=== PATIENT | female | born 1970 | race Caucasian/White ===

== ENCOUNTER 2018-06-23 14:44 | Inpatient (IN) | payer OTHER ==
[2018-06-23 16:55] VITALS: BMI 25.0
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
[2018-06-23] MEDS ORDERED: MELATONIN 5 MG TABLETS PO PRN (18:47)
[2018-06-23] MEDS ORDERED: ACETAMINOPHEN 325 MG TABLET (FP) PO PRN (18:47)
[2018-06-23] MEDS ORDERED: guaiFENesin 200 MG/10 ML 10 ML UNIT-DOSE CUPS PO PRN (18:47)
[2018-06-23] MEDS ORDERED: BISMUTH SUBSALICYLATE 524 MG/30 ML UD PO PRN (18:47)
[2018-06-23] MEDS ORDERED: chlordiazePOXIDE HCL 25 MG CAPSULE PO PRN (18:47)
[2018-06-23] MEDS ORDERED: IBUPROFEN 400 MG TABLET (FP) PO PRN (18:47)
[2018-06-23] MEDS ORDERED: PROCHLORPERAZINE MALEATE 5 MG TABLET PO PRN (18:47)
[2018-06-23] MEDS ORDERED: MAG HYDROX/AL HYDROX/SIMETH 30 ML UNIT-DOSE CUP PO PRN (18:47)
[2018-06-23] MEDS ORDERED: MENTHOL/PHENOL 1 EACH UD MM PRN (18:47)
[2018-06-23] MEDS ORDERED: MAGNESIUM CITRATE 300 ML BOTTLE PO PRN (18:47)
[2018-06-23] MEDS ORDERED: MAGNESIUM HYDROX 2400MG/30ML ORAL SUSPENSION 30 ML CUP PO PRN (18:47)
[2018-06-23] MEDS ORDERED: BUPRENORPHINE/NALOXONE 8 MG/2 MG FILM PACKET SL ONE (19:30)
[2018-06-23] MEDS ORDERED: chlordiazePOXIDE HCL 25 MG CAPSULE PO ONE (19:30)
[2018-06-23] MEDS: diphenhydrAMINE HCL 25 MG CAPSULE (FP) PO SCH (21:18)
[2018-06-23] MEDS: chlordiazePOXIDE HCL 25 MG CAPSULE PO SCH (22:55)
[2018-06-23] MEDS: THIAMINE HCL 100 MG TABLET (FP) PO SCH (22:56)
[2018-06-23] MEDS: METHOCARBAMOL 500 MG TABLET PO PRN (23:07)
[2018-06-23] MEDS: TOPIRAMATE 25 MG TABLET (FP) PO SCH (23:42)
[2018-06-23] MEDS: NITROFURANTOIN MACROCRYSTAL 50 MG CAPSULE (FP) PO SCH (23:44)
[2018-06-24] MEDS ORDERED: cloNIDine HCL 0.1 MG TABLET PO ONE (01:46)
[2018-06-24] MEDS: IBUPROFEN 600 MG TABLET (FP) PO PRN ×2 (01:55→22:45)
[2018-06-24] MEDS: diphenhydrAMINE HCL 25 MG CAPSULE (FP) PO SCH (01:57)
[2018-06-24] MEDS: chlordiazePOXIDE HCL 25 MG CAPSULE PO SCH ×4 (05:50→22:25)
--- NOTE | 2018-06-24 09:20 | PN ---
[facility] CIWA - CIWA Score Nausea/Vomitin Muscle Tremors: 3 Anxiety: 3 Agitation: 4-Moderately Restless Paroxysmal Sweats: 3 Orientation: 0-Oriented Tacttile Disturbances: 0-None Auditory Disturbances: 0-None Visual Disturbances: 0-None Headache: 0-None Present CIWA-Ar Total Score: 16 [facility] Progress Note (SOAP) Subjective: Generalized pain Sweats nausea Objective: 06/24/18 09:17 A & O x 3 Anxiety/Restless Requesting to have her suboxone dose daily instead of BID Requesting psych consult Vital Signs Temperature 98.8 F 06/24/18 06:13 Pulse Rate 60 06/24/18 06:13 Respiratory Rate 18 06/24/18 06:13 Blood Pressure 122/79 06/24/18 06:13 O2 Sat by Pulse Oximetry (%) Lab results are pending Assessment: 06/24/18 09:53 withdrawal sx Plan: continue detox Psych consult already ordered Called pt's [facility]oxone center ([facility]) at [phone], unable to verify dose as voicemail was received. Voice message left with [employer] ARTIST call back #. Will keep pt on the dose ordered by MARY Chapman until dose is verified. Pt made aware
[2018-06-24] MEDS: PRENATAL VITAMINS W/ FOLIC ACID TABLET (FP) PO SCH (10:48)
[2018-06-24] MEDS: NITROFURANTOIN MACROCRYSTAL 50 MG CAPSULE (FP) PO SCH ×2 (10:48→22:23)
[2018-06-24] MEDS: BUPRENORPHINE/NALOXONE 8 MG/2 MG FILM PACKET SL SCH (10:48)
[2018-06-24] MEDS: TOPIRAMATE 25 MG TABLET (FP) PO SCH ×2 (10:48→22:23)
[2018-06-24 10:54] LABS: HEMATOCRIT 38.6 % (32.4-45.2); HEMOGLOBIN 12.3 GM/dL (10.7-15.3); MCH 29.4 pg (25.7-33.7); MCHC 31.8 g/dl (32.0-36.0); MEAN CELL VOLUME 92.4 fl (80-96); MEAN PLT VOLUME 7.4 fl (7.5-11.1); PLATELET COUNT 163 K/MM3 (134-434); RBC 4.17 M/mm3 (3.60-5.2); RDW 15.6 % (11.6-15.6); WHITE BLOOD COUNT 6.2 K/mm3 (4.0-10.0)
[2018-06-24 11:01] LABS: ALBUMIN 3.5 g/dl (3.4-5.0); ALK PHOS 106 U/L (45-117); ANION GAP 7 MMOL/L (8-16); BILIRUBIN,TOTAL 0.8 mg/dL (0.2-1); BLOOD UREA NITROGEN 16 mg/dL (7-18); CALCIUM 8.8 mg/dL (8.5-10.1); CHLORIDE 101 mmol/L (98-107); CO2 26 mmol/L (21-32); CREATININE 0.6 mg/dL (0.55-1.3); GLUCOSE,RANDOM 88 mg/dL (74-106); POTASSIUM 3.5 mmol/L (3.5-5.1); SGOT/AST 36 U/L (15-37); SGPT/ALT 24 U/L (13-61); SODIUM 134 mmol/L (136-145); TOT PROT 6.9 g/dl (6.4-8.2)
[2018-06-24] MEDS: METHOCARBAMOL 500 MG TABLET PO PRN ×2 (11:26→18:00)
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
[2018-06-24] MEDS: THIAMINE HCL 100 MG TABLET (FP) PO SCH (22:22)
[2018-06-24] MEDS: BUPRENORPHINE/NALOXONE 2 MG/0.5 MG FILM PACKET SL SCH (22:25)
[2018-06-25] MEDS: ACETAMINOPHEN 325 MG TABLET (FP) PO PRN ×2 (01:08→05:49)
[2018-06-25] MEDS: METHOCARBAMOL 500 MG TABLET PO PRN ×2 (01:08→10:51)
[2018-06-25] MEDS: chlordiazePOXIDE HCL 25 MG CAPSULE PO SCH ×2 (05:49→10:47)
[2018-06-25 09:33] VITALS: BP 104/70; PULSE 81; TEMP 96
[2018-06-25] MEDS ORDERED: VENLAFAXINE HCL 75 MG E.R. CAPSULES (FP) PO SCH (10:00)
[2018-06-25] MEDS: BUPRENORPHINE/NALOXONE 8 MG/2 MG FILM PACKET SL SCH (10:47)
[2018-06-25] MEDS: TOPIRAMATE 25 MG TABLET (FP) PO SCH (10:47)
[2018-06-25] MEDS: PRENATAL VITAMINS W/ FOLIC ACID TABLET (FP) PO SCH (10:47)
[2018-06-25] MEDS: BUPRENORPHINE/NALOXONE 2 MG/0.5 MG FILM PACKET SL SCH (10:47)
[2018-06-25] MEDS: NITROFURANTOIN MACROCRYSTAL 50 MG CAPSULE (FP) PO SCH (10:48)
--- NOTE | 2018-06-25 13:43 | DS ---
[facility] Detox Discharge Summary Admission Date: 06/23/18 Discharge Date: 06/25/18 - History Present History: Alcohol Dependence Additional Comments: 47 years old naga admitted on 06/23/18 for alcohol withdrawal stabilization feeling better wishes to leave detox unit today and begin alcohol rehab tomorrow patient wants to return to her suboxone maintenance program for medical and mental issues - Physical Exam Results Vital Signs: Vital Signs Temperature 96.0 F L 06/25/18 09:33 Pulse Rate 81 06/25/18 09:33 Respiratory Rate 16 06/25/18 09:33 Blood Pressure 104/70 06/25/18 09:33 O2 Sat by Pulse Oximetry (%) Pertinent Admission Physical Exam Findings: alcoholl withdrawal sx Laboratory Last Values WBC 6.2 K/mm3 (4.0-10.0) 06/24/18 07:45 RBC 4.17 M/mm3 (3.60-5.2) 06/24/18 07:45 Hgb 12.3 GM/dL (10.7-15.3) 06/24/18 07:45 Hct 38.6 % (32.4-45.2) 06/24/18 07:45 MCV 92.4 fl (80-96) 06/24/18 07:45 MCH 29.4 pg (25.7-33.7) 06/24/18 07:45 MCHC 31.8 g/dl (32.0-36.0) L 06/24/18 07:45 RDW 15.6 % (11.6-15.6) D 06/24/18 07:45 Plt Count 163 K/MM3 (134-434) D 06/24/18 07:45 MPV 7.4 fl (7.5-11.1) L 06/24/18 07:45 Sodium 134 mmol/L (136-145) L 06/24/18 07:45 Potassium 3.5 mmol/L (3.5-5.1) 06/24/18 07:45 Chloride 101 mmol/L (98-107) 06/24/18 07:45 Carbon Dioxide 26 mmol/L (21-32) 06/24/18 07:45 Anion Gap 7 MMOL/L (8-16) L 06/24/18 07:45 BUN 16 mg/dL (7-18) 06/24/18 07:45 Creatinine 0.6 mg/dL (0.55-1.3) 06/24/18 07:45 Creat Clearance w eGFR 107.62 (>60) 06/24/18 07:45 Random Glucose 88 mg/dL (74-106) 06/24/18 07:45 Calcium 8.8 mg/dL (8.5-10.1) 06/24/18 07:45 Total Bilirubin 0.8 mg/dL (0.2-1) 06/24/18 07:45 AST 36 U/L (15-37) 06/24/18 07:45 ALT 24 U/L (13-61) 06/24/18 07:45 Alkaline Phosphatase 106 U/L (45-117) 06/24/18 07:45 Total Protein 6.9 g/dl (6.4-8.2) 06/24/18 07:45 Albumin 3.5 g/dl (3.4-5.0) 06/24/18 07:45 RPR Titer Nonreactive (NONREACTIVE) 06/24/18 07:45 lab noted - Treatment Hospital Course: Detox Protocol Followed, Detoxed Safely, Responded well, Discharged Condition Good, Rehab Referral Accepted Patient has Accepted a Rehab Referral to: suboxone maintenance program - Medication Discharge Medications: Ambulatory Orders Hydroxyzine HCl 50 mg PO TID 06/23/18 Topiramate [Topamax -] 100 mg PO BID 06/23/18 Venlafaxine HCl ER [Effexor Xr -] 225 mg PO DAILY 06/23/18 - Diagnosis (1) Alcohol dependence with uncomplicated withdrawal Current Visit: Yes Status: Acute (2) Encounter for monitoring Suboxone maintenance therapy Current Visit: Yes Status: Chronic - AMA Did Patient Leave Against Medical Advice: No
[2018-06-25] MEDS ORDERED: chlordiazePOXIDE HCL 10 MG CAPSULE PO SCH (23:00)
[2018-06-25] MEDS ORDERED: chlordiazePOXIDE HCL 10 MG CAPSULE PO PRN (23:00)
--- NOTE | 2018-06-26 11:22 | EKG ---
Test Reason : Blood Pressure : / mmHG Vent. Rate : 079 BPM Atrial Rate : 085 BPM P-R Int : 134 ms QRS Dur : 102 ms QT Int : 394 ms P-R-T Axes : 048 039 040 degrees QTc Int : 451 ms SINUS RHYTHM WITH MARKED SINUS ARRHYTHMIA MINIMAL VOLTAGE CRITERIA FOR LVH, MAY BE NORMAL VARIANT BORDERLINE ECG NO PREVIOUS ECGS AVAILABLE Confirmed by FLORENCE FULTON MD ([id number]) on 06/26/2018 11:21:43 AM Referred By: Confirmed By:FLORENCE FULTON MD
[2018-06-26] MEDS ORDERED: chlordiazePOXIDE HCL 10 MG CAPSULE PO SCH (23:00)
== END 2018-06-25 15:35 | disposition home or self-care (01) | DRG 773 ==
LOC: YASAS 14:44 → Y3N 19:10
PROVIDERS: ADMIT Surgery; ATTEND Surgery
PROC: HZ2ZZZZ Detoxification Services for Substance Abuse Treatment (ICD-10-PCS; principal; 2018-06-23)
DX: F10.230 Alcohol dependence with withdrawal, uncomplicated (principal); F11.20 Opioid dependence, uncomplicated; F14.20 Cocaine dependence, uncomplicated; F43.10 Post-traumatic stress disorder, unspecified; F31.9 Bipolar disorder, unspecified; F90.9 Attention-deficit hyperactivity disorder, unspecified type; D50.9 Iron deficiency anemia, unspecified; G47.00 Insomnia, unspecified; N39.0 Urinary tract infection, site not specified; M54.5 Low back pain; G89.29 Other chronic pain; Z86.69 Personal history of other diseases of the nervous system and sense organs; Z98.84 Bariatric surgery status; Z98.1 Arthrodesis status
CPT/HCPCS: 36415; 80053; 80201; 85027; 86593; 93005; 93010; J0735

== ENCOUNTER 2018-07-22 08:23 | Inpatient (IN) | payer OTHER ==
[2018-07-22 08:53] VITALS: BMI 26.6
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
[2018-07-22] MEDS ORDERED: BISMUTH SUBSALICYLATE 524 MG/30 ML UD PO PRN (09:49)
[2018-07-22] MEDS ORDERED: MAGNESIUM CITRATE 300 ML BOTTLE PO PRN (09:49)
[2018-07-22] MEDS ORDERED: MAGNESIUM HYDROX 2400MG/30ML ORAL SUSPENSION 30 ML CUP PO PRN (09:49)
[2018-07-22] MEDS ORDERED: MAG HYDROX/AL HYDROX/SIMETH 30 ML UNIT-DOSE CUP PO PRN (09:49)
[2018-07-22] MEDS ORDERED: NICOTINE POLACRILEX 2 MG GUM BUC PRN (09:49)
[2018-07-22] MEDS ORDERED: MENTHOL/PHENOL 1 EACH UD MM PRN (09:49)
[2018-07-22] MEDS ORDERED: chlordiazePOXIDE HCL 25 MG CAPSULE PO ONE (09:49)
[2018-07-22] MEDS: BUPRENORPHINE/NALOXONE 8 MG/2 MG FILM PACKET SL SCH (10:40)
[2018-07-22] MEDS: chlordiazePOXIDE HCL 25 MG CAPSULE PO SCH ×3 (10:40→22:25)
[2018-07-22] MEDS: TOPIRAMATE 100 MG TABLET PO SCH ×2 (11:13→22:25)
[2018-07-22] MEDS: EMTRICITABINE 200MG/TENOFOVIR 300MG PO SCH (11:13)
[2018-07-22] MEDS: PRENATAL VITAMINS W/ FOLIC ACID TABLET (FP) PO SCH (11:13)
[2018-07-22] MEDS: RALTEGRAVIR POTASSIUM 400 MG TAB PO SCH ×2 (11:13→22:25)
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
[2018-07-22] MEDS: IBUPROFEN 400 MG TABLET (FP) PO PRN ×2 (15:17→23:43)
--- NOTE | 2018-07-22 18:29 | PN ---
S Progress Note Note: patient complained of itching,benadryl 25 mgs po q 6 hrs prn ordered Vital Signs Temperature 98.1 F 07/22/18 14:22 Pulse Rate 80 07/22/18 14:22 Respiratory Rate 16 07/22/18 14:22 Blood Pressure 133/70 07/22/18 14:22 O2 Sat by Pulse Oximetry (%) no difficulty in breathing close monitoring,continue detox
[2018-07-22] MEDS: diphenhydrAMINE HCL 25 MG CAPSULE (FP) PO PRN (18:32)
[2018-07-22] MEDS: ACETAMINOPHEN 325 MG TABLET (FP) PO PRN (18:33)
[2018-07-22] MEDS: THIAMINE HCL 100 MG TABLET (FP) PO SCH (22:25)
[2018-07-22] MEDS: MELATONIN 5 MG TABLETS PO PRN (22:26)
[2018-07-23] MEDS: ACETAMINOPHEN 325 MG TABLET (FP) PO PRN ×3 (00:40→17:34)
[2018-07-23] MEDS: diphenhydrAMINE HCL 25 MG CAPSULE (FP) PO PRN ×2 (00:42→15:07)
[2018-07-23] MEDS: chlordiazePOXIDE HCL 25 MG CAPSULE PO PRN ×2 (02:39→14:19)
[2018-07-23] MEDS: chlordiazePOXIDE HCL 25 MG CAPSULE PO SCH ×4 (05:30→22:13)
[2018-07-23] MEDS: IBUPROFEN 400 MG TABLET (FP) PO PRN (05:32)
[2018-07-23] MEDS: PRENATAL VITAMINS W/ FOLIC ACID TABLET (FP) PO SCH (10:13)
[2018-07-23] MEDS: BUPRENORPHINE/NALOXONE 8 MG/2 MG FILM PACKET SL SCH (10:14)
[2018-07-23] MEDS ORDERED: IBUPROFEN 400 MG TABLET (FP) PO PRN (10:23)
[2018-07-23 11:01] LABS: HEMOGLOBIN 11.4 GM/dL (10.7-15.3); MCH 30.1 pg (25.7-33.7); MCHC 32.7 g/dl (32.0-36.0); MEAN CELL VOLUME 92.3 fl (80-96); MEAN PLT VOLUME 7.2 fl (7.5-11.1); PLATELET COUNT 279 K/MM3 (134-434); RDW 16.8 % (11.6-15.6); WHITE BLOOD COUNT 5.2 K/mm3 (4.0-10.0)
[2018-07-23 11:13] LABS: ALBUMIN 3.5 g/dl (3.4-5.0); ALK PHOS 93 U/L (45-117); ANION GAP 8 MMOL/L (8-16); BILIRUBIN,TOTAL 0.6 mg/dL (0.2-1); BLOOD UREA NITROGEN 10 mg/dL (7-18); CALCIUM 8.6 mg/dL (8.5-10.1); CHLORIDE 104 mmol/L (98-107); CO2 25 mmol/L (21-32); CREATININE 0.6 mg/dL (0.55-1.3); GLUCOSE,RANDOM 67 mg/dL (74-106); POTASSIUM 3.1 mmol/L (3.5-5.1); SGOT/AST 24 U/L (15-37); SGPT/ALT 25 U/L (13-61); SODIUM 137 mmol/L (136-145)
[2018-07-23] MEDS: EMTRICITABINE 200MG/TENOFOVIR 300MG PO SCH (13:12)
[2018-07-23] MEDS: METHOCARBAMOL 500 MG TABLET PO PRN ×2 (13:12→22:15)
--- NOTE | 2018-07-23 13:12 | PN ---
[facility] CIWA - CIWA Score Nausea/Vomitin-No Nausea/No Vomiting Muscle Tremors: 1-None Visible, but [place] Anxiety: 4-Mod. Anxious/Guarded Agitation: 2 Paroxysmal Sweats: No Perspiration Orientation: 0-Oriented Tacttile Disturbances: 0-None Auditory Disturbances: 0-None Visual Disturbances: 0-None Headache: 3-Moderate CIWA-Ar Total Score: 10 S Progress Note (SOAP) Subjective: Patient c/o insomnia, anxiety, shakes, headache and sadness due to not having custody of her son. Patient seen by Psych but states her medication dosages are not correct. Requesting psych consult. Objective: 07/23/18 13:09 Laboratory Tests 07/23/18 07/23/18 07/23/18 07:00 07:00 07:00 WBC 5.2 RBC 3.80 Hgb 11.4 Hct 35.0 MCV 92.3 MCH 30.1 MCHC 32.7 RDW 16.8 H Plt Count 279 D MPV 7.2 L Sodium 137 Potassium 3.1 L Chloride 104 Carbon Dioxide 25 Anion Gap 8 BUN 10 Creatinine 0.6 Creat Clearance w eGFR 107.62 Random Glucose 67 L Calcium 8.6 Total Bilirubin 0.6 AST 24 ALT 25 Alkaline Phosphatase 93 Total Protein 7.0 Albumin 3.5 RPR Titer Nonreactive Vital Signs Temperature 98.1 F 07/23/18 09:39 Pulse Rate 71 07/23/18 09:39 Respiratory Rate 18 07/23/18 09:39 Blood Pressure 124/68 07/23/18 09:39 O2 Sat by Pulse Oximetry (%) pe: alert and oriented x 3 skin warm, +facial flushing ext full rom, mild tremors felt amb ad román anxious Assessment: 07/23/18 13:11 withdrawal sx sleep disturbance depressed affect Plan: continue detox encourage fluids trazodone 50mg hs ordered reconsult psych monitor clinically
[2018-07-23] MEDS: RALTEGRAVIR POTASSIUM 400 MG TAB PO SCH ×2 (13:13→22:13)
[2018-07-23] MEDS: TOPIRAMATE 100 MG TABLET PO SCH ×2 (13:14→22:13)
[2018-07-23] MEDS: POTASSIUM CHLORIDE TABS 20 MEQ TABLET.ER (FP) PO SCH ×2 (13:55→22:13)
[2018-07-23] MEDS ORDERED: traZODone HCL 50 MG TABLET (FP) PO SCH (22:00)
[2018-07-23] MEDS ORDERED: traZODone HCL 50 MG TABLET (FP) PO ONE (22:00)
[2018-07-23] MEDS: THIAMINE HCL 100 MG TABLET (FP) PO SCH (22:13)
[2018-07-23] MEDS: MELATONIN 5 MG TABLETS PO PRN (22:14)
[2018-07-24] MEDS: chlordiazePOXIDE HCL 25 MG CAPSULE PO SCH (05:42)
[2018-07-24] MEDS: METHOCARBAMOL 500 MG TABLET PO PRN ×3 (05:44→18:34)
[2018-07-24] MEDS ORDERED: ONDANSETRON *ODT* 4 MG TABLET SL PRN (09:41)
[2018-07-24] MEDS: POTASSIUM CHLORIDE TABS 20 MEQ TABLET.ER (FP) PO SCH (10:05)
[2018-07-24] MEDS: RALTEGRAVIR POTASSIUM 400 MG TAB PO SCH ×2 (10:05→22:37)
[2018-07-24] MEDS: PRENATAL VITAMINS W/ FOLIC ACID TABLET (FP) PO SCH ×2 (10:05→10:07)
[2018-07-24] MEDS: chlordiazePOXIDE HCL 10 MG CAPSULE PO SCH ×3 (10:07→22:37)
[2018-07-24] MEDS: EMTRICITABINE 200MG/TENOFOVIR 300MG PO SCH (10:07)
[2018-07-24] MEDS: BUPRENORPHINE/NALOXONE 8 MG/2 MG FILM PACKET SL SCH (10:07)
[2018-07-24] MEDS: TOPIRAMATE 100 MG TABLET PO SCH ×2 (10:07→22:38)
--- NOTE | 2018-07-24 10:49 | PN ---
S CIWA - CIWA Score Nausea/Vomitin-Mild Nausea/No Vomiting Muscle Tremors: 3 Anxiety: 3 Agitation: 4-Moderately Restless Paroxysmal Sweats: 3 Orientation: 0-Oriented Tacttile Disturbances: 0-None Auditory Disturbances: 0-None Visual Disturbances: 0-None Headache: 0-None Present CIWA-Ar Total Score: 14 [facility] Progress Note (SOAP) Subjective: nausea headache sweats anxiety I need my effexor Objective: 07/24/18 10:46 Vital Signs Temperature 98.0 F 07/24/18 09:18 Pulse Rate 77 07/24/18 09:18 Respiratory Rate 18 07/24/18 09:18 Blood Pressure 122/66 07/24/18 09:18 O2 Sat by Pulse Oximetry (%) Laboratory Tests 07/23/18 07/23/18 07/23/18 07:00 07:00 07:00 WBC 5.2 RBC 3.80 Hgb 11.4 Hct 35.0 MCV 92.3 MCH 30.1 MCHC 32.7 RDW 16.8 H Plt Count 279 D MPV 7.2 L Sodium 137 Potassium 3.1 L Chloride 104 Carbon Dioxide 25 Anion Gap 8 BUN 10 Creatinine 0.6 Creat Clearance w eGFR 107.62 Random Glucose 67 L Calcium 8.6 Total Bilirubin 0.6 AST 24 ALT 25 Alkaline Phosphatase 93 Total Protein 7.0 Albumin 3.5 RPR Titer Nonreactive 07/24/18 07:00 WBC RBC Hgb Hct MCV MCH MCHC RDW Plt Count MPV Sodium Potassium 4.6 Chloride Carbon Dioxide Anion Gap BUN Creatinine Creat Clearance w eGFR Random Glucose Calcium Total Bilirubin AST ALT Alkaline Phosphatase Total Protein Albumin RPR Titer repeated potassium labs result WNL. pt will complete kdur that was ordered for one day aaox3 ambulating no acute distress Assessment: 07/24/18 10:48 withdrawal sx Plan: continue detox increase fluids motrin 800mg ordered zofran sl prn
[2018-07-24] MEDS ORDERED: chlordiazePOXIDE HCL 10 MG CAPSULE PO PRN (11:00)
--- NOTE | 2018-07-24 13:18 | PN ---
Psychiatric Progress Note Vital Signs: Vital Signs Period Temp Pulse Resp BP Sys/Gerardo Pulse Ox Last 24 Hr 96.7 F-98.0 F 59-82 18-18 100-122/57-79 Date of Session: 07/24/18 Chief Complaint:: " I need my effexor ". HPI: Evaluated on 07/22/18 by this process description writer. Case of a 47 y/o female undergoing detoxification treatment (heroin, cocaine, alcohol), currently showing significant progress and who requested a psychiatric re-consult to address issue of venlafaxine (medication discontinued for evidence of chronic non- adherence). ROS: Unremarkable. Patient is ambulatory, well-controlled, cognitively intact and visible on the unit. Current Medications: Active Medications Generic Name Dose Route Start Last Admin Trade Name Freq PRN Reason Stop Dose Admin Acetaminophen 650 mg 07/22/18 09:49 07/23/18 17:34 Tylenol - PO 650 mg Q6H PRN Administration PAIN LEVEL 4 - 6 Al Hydroxide/Mg Hydroxide 30 ml 07/22/18 09:49 Mylanta Oral Suspension - PO Q6H PRN DYSPEPSIA Bismuth Subsalicylate 524 mg 07/22/18 09:49 Pepto-Bismol - PO Q1H PRN DIARRHEA Buprenorphine/Naloxone 1 each 07/22/18 10:00 07/24/18 10:07 Suboxone 8mg/2mg Sl Film - SL 07/28/18 10:01 1 each DAILY ESTRELLA Administration Chlordiazepoxide HCl 10 mg 07/24/18 11:00 07/24/18 10:07 Librium - PO 07/25/18 05:01 10 mg [id number] ESTRELLA Administration Chlordiazepoxide HCl 10 mg 07/25/18 11:00 Librium - PO 07/26/18 11:01 Q12H ESTRELLA Chlordiazepoxide HCl 10 mg 07/24/18 11:00 Librium - PO 07/25/18 11:00 Q4H PRN WITHDRAWAL(CONT SUBST) Diphenhydramine HCl 25 mg 07/22/18 18:26 07/23/18 15:07 Benadryl - PO 07/24/18 23:59 25 mg Q6H PRN Administration FOR ITCHING Emtricitabine/Tenofovir 1 tab 07/22/18 10:00 07/24/18 10:07 Truvada PO 1 tab DAILY ESTRELLA Administration Eucalyptus/Menthol/Phenol/Sorbitol 1 each 07/22/18 09:49 Cepastat Lozenge - MM 07/28/18 09:50 Q4H PRN SORE THROAT Ibuprofen 800 mg 07/24/18 09:38 Motrin - PO Q8H PRN PAIN LEVEL 6-10 Magnesium Citrate 300 ml 07/22/18 09:49 Citroma - PO Q48H PRN CONSTIPATION Magnesium Hydroxide 30 ml 07/22/18 09:49 Milk Of Magnesia - PO PRN PRN CONSTIPATION Melatonin 5 mg 07/22/18 09:49 07/23/18 22:14 Melatonin PO 5 mg HS PRN Administration INSOMNIA Methocarbamol 500 mg 07/22/18 09:49 07/24/18 13:05 Robaxin - PO 07/28/18 09:50 500 mg Q6H PRN Administration MUSCLE SPASMS Nicotine Polacrilex 2 mg 07/22/18 09:49 Nicorette Gum - BUC Q2H PRN NICOTINE REPLACEMENT RX Ondansetron HCl 4 mg 07/24/18 09:41 07/24/18 13:05 Zofran Odt - SL 4 mg Q6H PRN Administration NAUSEA AND/OR VOMITING Multivit/Folic Acid/Iron 1 tab 07/22/18 10:00 07/24/18 10:07 Vitamins (Sjr) - PO 1 tab DAILY ESTRELLA Administration Raltegravir 400 mg 07/22/18 10:00 07/24/18 10:05 Isentress - PO 400 mg BID ESTRELLA Administration Thiamine HCl 100 mg 07/22/18 22:00 07/23/18 22:13 Vitamin B1 - PO 100 mg HS ESTRELLA Administration Topiramate 100 mg 07/22/18 10:00 07/24/18 10:07 Topamax - PO 100 mg BID ESTRELLA Administration Medication(s) Change(s): Medications revisited. Contact is established, today, with pharmacist at [facility] + [facility] in [facility] (with the patient's verbal authorization). Findings : refills for effexor 225 mg/day (last issued on 04/26/18) + topamax 100 mg/bid (last issued in January 2018). From [facility] ([phone]), the patient had picked up scripts for adderall 20 mg/ bid on 06/09/18 (nothing else). Ms Carrasco is clearly an unreliable historian. At the session of 07/22/18 with this process description writer, she had admitted to using wellbutrin tablets that belong " to a friend ", on a sporadic basis. Patient insists on resuming that drug in this hospital course. Will restart wellbutrin XL 75 mg po daily + remeron 15 mg po hs. Ms Carrasco agrees. Side effects/ benefits of both drugs are discussed with patient. She is made aware, in particular, of the potential for hypertension. Consent (verbal) given to MD. Current Side Effect: No Lab tests ordered: No Lab tests reviewed: Yes Provider note:: Chart reviewed. Multidisciplinary progress notes are appreciated. Met with patient. Two medical students + female staff, NAKUL Boss in attendance). Ms Carrasco specifically requested the presence of a female staff at the conference. Patient is invested in multiple complaints (insomnia, anxiety, depression, dissatisfaction with current treatment protocol). She presents as histrionic, emotionally incontinent (crying spells), logorrheic, argumentative, hostile and needy. Resistant to information provided about treatment guidelines, indications and side effects of medications. Manipulative. Firm limits had to be set during the interview. Patient is reassured. Her complaints are validated. Medications negotiated (refer to Medications section for details). Ms Rodríguez exhibits evidence of a mood syndrome justifying the utilization of a mood stabilizer (topiramate) in addition to bupropion. Patient is offered the option of an atypical agent. She declines. Mental status remains stable. Will follow. Total face to face time:: 65 Mental Status Exam - Mental Status Exam Alert and Oriented to: Time, Place, Person Cognitive Function: Good Patient Appearance: Well Groomed Mood: Anxious Affect: Labile Patient Behavior: Inappropriate (infantile, manipulative, histrionic), Crying, Talkative Speech Pattern: Clear (loquacious), Excessive, Perseverating Voice Loudness: Normal Thought Process: Circumstantial Thought Disorder: Present, Grandiose Hallucinations: Denies Suicidal Ideation: Denies Homicidal Ideation: Denies Insight/Judgement: Poor Sleep: Poorly, Difficulty falling asleep Appetite: Good Gait/Station: Normal Psychiatric Treatment Plan - Problem List (1) Alcohol dependence with uncomplicated withdrawal Current Visit: Yes Comment: . (2) Opioid dependence on agonist therapy Current Visit: Yes Comment: . (3) Cocaine dependence, uncomplicated Current Visit: Yes Comment: . (4) ADHD (attention deficit hyperactivity disorder) Current Visit: Yes Qualifiers: Attention deficit-hyperactivity disorder type: unspecified Qualified Code(s ): F90.9 - Attention-deficit hyperactivity disorder, unspecified type Comment: .on meds (5) History of bipolar disorder Current Visit: Yes Comment: . (6) Post traumatic stress disorder (PTSD) Current Visit: Yes Comment: . (7) Insomnia Current Visit: Yes Comment: . (8) Non-compliance Current Visit: Yes Comment: .
[2018-07-24] MEDS: IBUPROFEN 400 MG TABLET (FP) PO PRN ×2 (13:50→22:39)
[2018-07-24] MEDS: VENLAFAXINE HCL 75 MG E.R. CAPSULES (FP) PO SCH (15:20)
[2018-07-24] MEDS: MIRTAZAPINE 15 MG TABLET (FP) PO SCH (22:37)
[2018-07-24] MEDS: THIAMINE HCL 100 MG TABLET (FP) PO SCH (22:38)
[2018-07-25] MEDS: chlordiazePOXIDE HCL 10 MG CAPSULE PO SCH ×3 (05:16→22:09)
[2018-07-25] MEDS: METHOCARBAMOL 500 MG TABLET PO PRN ×2 (05:17→22:09)
[2018-07-25] MEDS: PRENATAL VITAMINS W/ FOLIC ACID TABLET (FP) PO SCH (10:07)
[2018-07-25] MEDS: BUPRENORPHINE/NALOXONE 8 MG/2 MG FILM PACKET SL SCH (10:07)
[2018-07-25] MEDS: EMTRICITABINE 200MG/TENOFOVIR 300MG PO SCH (10:08)
[2018-07-25] MEDS: RALTEGRAVIR POTASSIUM 400 MG TAB PO SCH ×2 (10:08→22:09)
[2018-07-25] MEDS: VENLAFAXINE HCL 75 MG E.R. CAPSULES (FP) PO SCH (10:08)
[2018-07-25] MEDS: TOPIRAMATE 100 MG TABLET PO SCH ×2 (10:08→22:09)
[2018-07-25] MEDS: IBUPROFEN 400 MG TABLET (FP) PO PRN ×2 (10:09→19:23)
--- NOTE | 2018-07-25 11:46 | PN ---
S CIWA - CIWA Score Nausea/Vomitin-No Nausea/No Vomiting Muscle Tremors: 2 Anxiety: 1-Mildly Anxious Agitation: 1-Slight > Activity Paroxysmal Sweats: 1-Minimal Palms Moist Orientation: 0-Oriented Tacttile Disturbances: 0-None Auditory Disturbances: 0-None Visual Disturbances: 0-None Headache: 0-None Present CIWA-Ar Total Score: 5 BHS Progress Note (SOAP) Subjective: feeling much better little anxiety Objective: 07/25/18 11:45 Vital Signs Temperature 98.9 F 07/25/18 10:28 Pulse Rate 75 07/25/18 10:28 Respiratory Rate 18 07/25/18 10:28 Blood Pressure 122/75 07/25/18 10:28 O2 Sat by Pulse Oximetry (%) aaox3 ambulating no acute distress Assessment: 07/25/18 11:45 mild withdrawal Plan: continue detox increase fluids d/c in am
[2018-07-25] MEDS: MIRTAZAPINE 15 MG TABLET (FP) PO SCH (22:09)
[2018-07-25] MEDS: THIAMINE HCL 100 MG TABLET (FP) PO SCH (22:09)
[2018-07-25] MEDS: MELATONIN 5 MG TABLETS PO PRN (22:10)
[2018-07-26] MEDS: METHOCARBAMOL 500 MG TABLET PO PRN (04:39)
[2018-07-26 07:21] VITALS: BP 112/51; PULSE 73; TEMP 97.9
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
[2018-07-26] MEDS: EMTRICITABINE 200MG/TENOFOVIR 300MG PO SCH (09:26)
[2018-07-26] MEDS: BUPRENORPHINE/NALOXONE 8 MG/2 MG FILM PACKET SL SCH (09:26)
[2018-07-26] MEDS: RALTEGRAVIR POTASSIUM 400 MG TAB PO SCH (09:27)
[2018-07-26] MEDS: VENLAFAXINE HCL 75 MG E.R. CAPSULES (FP) PO SCH (09:27)
[2018-07-26] MEDS: PRENATAL VITAMINS W/ FOLIC ACID TABLET (FP) PO SCH (09:27)
== END 2018-07-26 09:46 | disposition home or self-care (01) | DRG 774 ==
LOC: YASAS 08:23 → Y6N 09:53
PROVIDERS: ADMIT Surgery; ATTEND Surgery
PROC: HZ2ZZZZ Detoxification Services for Substance Abuse Treatment (ICD-10-PCS; principal; 2018-07-22)
DX: F10.230 Alcohol dependence with withdrawal, uncomplicated (principal); F14.20 Cocaine dependence, uncomplicated; F12.20 Cannabis dependence, uncomplicated; F90.9 Attention-deficit hyperactivity disorder, unspecified type; F43.10 Post-traumatic stress disorder, unspecified; N39.0 Urinary tract infection, site not specified; E87.6 Hypokalemia; G47.00 Insomnia, unspecified; R60.0 Localized edema; Z91.410 Personal history of adult physical and sexual abuse; Z86.69 Personal history of other diseases of the nervous system and sense organs; Z86.59 Personal history of other mental and behavioral disorders; Z51.81 Encounter for therapeutic drug level monitoring; Z88.0 Allergy status to penicillin; Z91.018 Allergy to other foods; Z91.040 Latex allergy status
CPT/HCPCS: 36415; 80053; 81025; 84132; 85027; 86593; Q0162

== ENCOUNTER 2018-08-07 09:43 | Inpatient (IN) | payer OTHER ==
[2018-08-07 10:46] VITALS: BMI 27.6
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
[2018-08-07] MEDS ORDERED: MAGNESIUM CITRATE 300 ML BOTTLE PO PRN (12:24)
[2018-08-07] MEDS ORDERED: MENTHOL/PHENOL 1 EACH UD MM PRN (12:24)
[2018-08-07] MEDS ORDERED: ACETAMINOPHEN 325 MG TABLET (FP) PO PRN (12:24)
[2018-08-07] MEDS ORDERED: MAG HYDROX/AL HYDROX/SIMETH 30 ML UNIT-DOSE CUP PO PRN (12:24)
[2018-08-07] MEDS ORDERED: MAGNESIUM HYDROX 2400MG/30ML ORAL SUSPENSION 30 ML CUP PO PRN (12:24)
[2018-08-07] MEDS: chlordiazePOXIDE HCL 25 MG CAPSULE PO PRN ×2 (12:49→19:26)
[2018-08-07 16:53] LABS: HEMATOCRIT 41.4 % (32.4-45.2); HEMOGLOBIN 13.4 GM/dL (10.7-15.3); MCH 28.9 pg (25.7-33.7); MCHC 32.2 g/dl (32.0-36.0); MEAN CELL VOLUME 89.7 fl (80-96); MEAN PLT VOLUME 7.9 fl (7.5-11.1); PLATELET COUNT 186 K/MM3 (134-434); RBC 4.62 M/mm3 (3.60-5.2); RDW 18.5 % (11.6-15.6); WHITE BLOOD COUNT 7.1 K/mm3 (4.0-10.0)
[2018-08-07 17:11] LABS: ALBUMIN 4.4 g/dl (3.4-5.0); CALCIUM 9.7 mg/dL (8.5-10.1); CREATININE 0.6 mg/dL (0.55-1.3); POTASSIUM 3.3 mmol/L (3.5-5.1); TOT PROT 7.9 g/dl (6.4-8.2)
[2018-08-07] MEDS: chlordiazePOXIDE HCL 25 MG CAPSULE PO SCH ×2 (17:21→22:05)
[2018-08-07] MEDS: IBUPROFEN 400 MG TABLET (FP) PO PRN (17:22)
[2018-08-07] MEDS: METHOCARBAMOL 500 MG TABLET PO PRN (19:26)
[2018-08-07] MEDS: BISMUTH SUBSALICYLATE 262 MG/15 ML BTL PO PRN (20:30)
[2018-08-07] MEDS: hydrOXYzine PAMOATE 25 MG CAPSULE (FP) PO PRN (22:04)
[2018-08-07] MEDS: THIAMINE HCL 100 MG TABLET (FP) PO SCH (22:04)
[2018-08-07] MEDS: RALTEGRAVIR POTASSIUM 400 MG TAB PO SCH (22:04)
[2018-08-07] MEDS: MELATONIN 5 MG TABLETS PO PRN (22:05)
[2018-08-08] MEDS: IBUPROFEN 400 MG TABLET (FP) PO PRN ×3 (01:05→15:39)
[2018-08-08] MEDS: chlordiazePOXIDE HCL 25 MG CAPSULE PO PRN ×3 (03:41→13:14)
[2018-08-08] MEDS: chlordiazePOXIDE HCL 25 MG CAPSULE PO SCH ×4 (05:21→22:06)
[2018-08-08] MEDS: ACETAMINOPHEN 325 MG TABLET (FP) PO PRN ×3 (05:24→19:10)
[2018-08-08] MEDS: METHOCARBAMOL 500 MG TABLET PO PRN ×3 (06:24→22:06)
[2018-08-08] MEDS: BISMUTH SUBSALICYLATE 262 MG/15 ML BTL PO PRN ×2 (09:02→13:12)
[2018-08-08] MEDS: BUPRENORPHINE/NALOXONE 8 MG/2 MG FILM PACKET SL SCH (10:48)
[2018-08-08] MEDS: PRENATAL VITAMINS W/ FOLIC ACID TABLET (FP) PO SCH (10:48)
[2018-08-08] MEDS: RALTEGRAVIR POTASSIUM 400 MG TAB PO SCH ×2 (10:48→22:06)
[2018-08-08] MEDS: EMTRICITABINE 200MG/TENOFOVIR 300MG PO SCH (10:49)
--- NOTE | 2018-08-08 11:01 | PN ---
[facility] CIWA - CIWA Score Nausea/Vomitin-Mild Nausea/No Vomiting Muscle Tremors: 3 Anxiety: 1-Mildly Anxious Agitation: 2 Paroxysmal Sweats: 1-Minimal Palms Moist Orientation: 3-Disoriented Date>2 days Tacttile Disturbances: 1-Very Mild Itch/Numbness Auditory Disturbances: 0-None Visual Disturbances: 0-None Headache: 1-Very Mild CIWA-Ar Total Score: 13 BHS Progress Note (SOAP) Subjective: feeling weak today lying on bed resting tolerate food and fluid well tremor otherwise doing well with librium detox regimen Objective: 08/08/18 11:03 Vital Signs Temperature 97.1 F L 08/08/18 09:28 Pulse Rate 85 08/08/18 09:28 Respiratory Rate 20 08/08/18 09:28 Blood Pressure 128/81 08/08/18 09:28 O2 Sat by Pulse Oximetry (%) Laboratory Last Values WBC 7.1 K/mm3 (4.0-10.0) 08/07/18 13:20 RBC 4.62 M/mm3 (3.60-5.2) 08/07/18 13:20 Hgb 13.4 GM/dL (10.7-15.3) 08/07/18 13:20 Hct 41.4 % (32.4-45.2) D 08/07/18 13:20 MCV 89.7 fl (80-96) 08/07/18 13:20 MCH 28.9 pg (25.7-33.7) 08/07/18 13:20 MCHC 32.2 g/dl (32.0-36.0) 08/07/18 13:20 RDW 18.5 % (11.6-15.6) H 08/07/18 13:20 Plt Count 186 K/MM3 (134-434) D 08/07/18 13:20 MPV 7.9 fl (7.5-11.1) 08/07/18 13:20 Sodium 136 mmol/L (136-145) 08/07/18 13:20 Potassium 3.3 mmol/L (3.5-5.1) L 08/07/18 13:20 Chloride 97 mmol/L (98-107) L 08/07/18 13:20 Carbon Dioxide 28 mmol/L (21-32) 08/07/18 13:20 Anion Gap 11 MMOL/L (8-16) 08/07/18 13:20 BUN 11 mg/dL (7-18) 08/07/18 13:20 Creatinine 0.6 mg/dL (0.55-1.3) 08/07/18 13:20 Est GFR (CKD-EPI)AfAm 126.69 08/07/18 13:20 Est GFR (CKD-EPI)NonAf 109.31 08/07/18 13:20 Random Glucose 80 mg/dL (74-106) 08/07/18 13:20 Calcium 9.7 mg/dL (8.5-10.1) 08/07/18 13:20 Total Bilirubin 1.0 mg/dL (0.2-1) 08/07/18 13:20 AST 58 U/L (15-37) H 08/07/18 13:20 ALT 37 U/L (13-61) 08/07/18 13:20 Alkaline Phosphatase 109 U/L (45-117) 08/07/18 13:20 Total Protein 7.9 g/dl (6.4-8.2) 08/07/18 13:20 Albumin 4.4 g/dl (3.4-5.0) 08/07/18 13:20 POC Urine HCG, Qual Negative 08/07/18 11:11 RPR Titer Nonreactive (NONREACTIVE) 08/07/18 13:20 HIV 1&2 Antibody Screen Negative 08/07/18 12:15 HIV P24 Antigen Negative 08/07/18 12:15 lab noted low K+ Assessment: 08/08/18 11:05 withdrawal sx low K+ Plan: continue detox K+ supplement repeat K+
[2018-08-08] MEDS: hydrOXYzine PAMOATE 25 MG CAPSULE (FP) PO PRN (12:01)
[2018-08-08] MEDS: POTASSIUM CHLORIDE ORAL LIQUID 20 MEQ/15 ML PO SCH ×2 (12:01→17:04)
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
[2018-08-08] MEDS: THIAMINE HCL 100 MG TABLET (FP) PO SCH (22:06)
[2018-08-08] MEDS: MELATONIN 5 MG TABLETS PO PRN (22:07)
[2018-08-08] MEDS ORDERED: diphenhydrAMINE HCL 25 MG CAPSULE (FP) PO ONE (23:53)
[2018-08-09] MEDS: chlordiazePOXIDE HCL 25 MG CAPSULE PO SCH ×2 (05:47→10:36)
[2018-08-09] MEDS: METHOCARBAMOL 500 MG TABLET PO PRN ×2 (05:49→16:43)
[2018-08-09] MEDS: BISMUTH SUBSALICYLATE 262 MG/15 ML BTL PO PRN ×2 (05:49→14:07)
[2018-08-09] MEDS: IBUPROFEN 400 MG TABLET (FP) PO PRN ×2 (05:49→14:05)
[2018-08-09] MEDS: chlordiazePOXIDE HCL 25 MG CAPSULE PO PRN ×3 (09:22→16:59)
[2018-08-09] MEDS: hydrOXYzine PAMOATE 25 MG CAPSULE (FP) PO PRN ×2 (09:22→16:46)
[2018-08-09] MEDS: EMTRICITABINE 200MG/TENOFOVIR 300MG PO SCH (10:36)
[2018-08-09] MEDS: BUPRENORPHINE/NALOXONE 8 MG/2 MG FILM PACKET SL SCH (10:36)
[2018-08-09] MEDS: PRENATAL VITAMINS W/ FOLIC ACID TABLET (FP) PO SCH (10:36)
[2018-08-09] MEDS: RALTEGRAVIR POTASSIUM 400 MG TAB PO SCH ×2 (10:36→22:19)
[2018-08-09] MEDS: ACETAMINOPHEN 325 MG TABLET (FP) PO PRN (10:38)
--- NOTE | 2018-08-09 13:59 | PN ---
S CIWA - CIWA Score Nausea/Vomitin-Mild Nausea/No Vomiting Muscle Tremors: 2 Anxiety: 2 Agitation: 2 Paroxysmal Sweats: 1-Minimal Palms Moist Orientation: 0-Oriented Tacttile Disturbances: 0-None Auditory Disturbances: 0-None Visual Disturbances: 0-None Headache: 1-Very Mild CIWA-Ar Total Score: 9 S Progress Note (SOAP) Subjective: seen by psychiatrist hold effexor and trazadon report difficulty to fall a sleep Objective: 08/09/18 13:57 Vital Signs Temperature 96.1 F L 08/09/18 13:39 Pulse Rate 78 08/09/18 13:39 Respiratory Rate 18 08/09/18 13:39 Blood Pressure 123/69 08/09/18 13:39 O2 Sat by Pulse Oximetry (%) Laboratory Last Values WBC 7.1 K/mm3 (4.0-10.0) 08/07/18 13:20 RBC 4.62 M/mm3 (3.60-5.2) 08/07/18 13:20 Hgb 13.4 GM/dL (10.7-15.3) 08/07/18 13:20 Hct 41.4 % (32.4-45.2) D 08/07/18 13:20 MCV 89.7 fl (80-96) 08/07/18 13:20 MCH 28.9 pg (25.7-33.7) 08/07/18 13:20 MCHC 32.2 g/dl (32.0-36.0) 08/07/18 13:20 RDW 18.5 % (11.6-15.6) H 08/07/18 13:20 Plt Count 186 K/MM3 (134-434) D 08/07/18 13:20 MPV 7.9 fl (7.5-11.1) 08/07/18 13:20 Sodium 136 mmol/L (136-145) 08/07/18 13:20 Potassium 3.3 mmol/L (3.5-5.1) L 08/07/18 13:20 Chloride 97 mmol/L (98-107) L 08/07/18 13:20 Carbon Dioxide 28 mmol/L (21-32) 08/07/18 13:20 Anion Gap 11 MMOL/L (8-16) 08/07/18 13:20 BUN 11 mg/dL (7-18) 08/07/18 13:20 Creatinine 0.6 mg/dL (0.55-1.3) 08/07/18 13:20 Est GFR (CKD-EPI)AfAm 126.69 08/07/18 13:20 Est GFR (CKD-EPI)NonAf 109.31 08/07/18 13:20 Random Glucose 80 mg/dL (74-106) 08/07/18 13:20 Calcium 9.7 mg/dL (8.5-10.1) 08/07/18 13:20 Total Bilirubin 1.0 mg/dL (0.2-1) 08/07/18 13:20 AST 58 U/L (15-37) H 08/07/18 13:20 ALT 37 U/L (13-61) 08/07/18 13:20 Alkaline Phosphatase 109 U/L (45-117) 08/07/18 13:20 Total Protein 7.9 g/dl (6.4-8.2) 08/07/18 13:20 Albumin 4.4 g/dl (3.4-5.0) 08/07/18 13:20 POC Urine HCG, Qual Negative 08/07/18 11:11 RPR Titer Nonreactive (NONREACTIVE) 08/07/18 13:20 HIV 1&2 Antibody Screen Negative 08/07/18 12:15 HIV P24 Antigen Negative 08/07/18 12:15 lab noted low K+ treated with K+ supplement repeat K+ pending 08/09/18 13:58 Assessment: 08/09/18 13:59 withdrawal sx Plan: continue detox
[2018-08-09] MEDS: chlordiazePOXIDE HCL 10 MG CAPSULE PO SCH ×2 (16:43→22:19)
[2018-08-09] MEDS ORDERED: chlordiazePOXIDE HCL 10 MG CAPSULE PO PRN (17:00)
[2018-08-09] MEDS ORDERED: diphenhydrAMINE HCL 50 MG CAPSULE PO ONE (17:45)
[2018-08-09] MEDS ORDERED: diphenhydrAMINE HCL 25 MG CAPSULE (FP) PO ONE (17:51)
[2018-08-09] MEDS ORDERED: QUEtiapine FUMARATE 50 MG TABLET PO ONE (22:00)
[2018-08-09] MEDS: THIAMINE HCL 100 MG TABLET (FP) PO SCH (22:19)
[2018-08-09] MEDS: MELATONIN 5 MG TABLETS PO PRN (22:20)
[2018-08-10] MEDS: IBUPROFEN 400 MG TABLET (FP) PO PRN ×2 (05:44→18:47)
[2018-08-10] MEDS: chlordiazePOXIDE HCL 10 MG CAPSULE PO SCH ×2 (05:44→10:15)
[2018-08-10] MEDS: METHOCARBAMOL 500 MG TABLET PO PRN ×2 (05:44→16:57)
[2018-08-10] MEDS: RALTEGRAVIR POTASSIUM 400 MG TAB PO SCH (10:15)
[2018-08-10] MEDS: PRENATAL VITAMINS W/ FOLIC ACID TABLET (FP) PO SCH (10:15)
[2018-08-10] MEDS: BUPRENORPHINE/NALOXONE 8 MG/2 MG FILM PACKET SL SCH (10:15)
[2018-08-10] MEDS: EMTRICITABINE 200MG/TENOFOVIR 300MG PO SCH (10:15)
[2018-08-10] MEDS: hydrOXYzine PAMOATE 50 MG CAPSULE (FP) PO PRN ×2 (12:16→16:56)
--- NOTE | 2018-08-10 14:32 | PN ---
[facility] CIWA - CIWA Score Nausea/Vomitin-Mild Nausea/No Vomiting Muscle Tremors: 1-None Visible, but [place] Anxiety: 1-Mildly Anxious Agitation: 1-Slight > Activity Paroxysmal Sweats: 1-Minimal Palms Moist Orientation: 0-Oriented Tacttile Disturbances: 0-None Auditory Disturbances: 0-None Visual Disturbances: 0-None Headache: 0-None Present CIWA-Ar Total Score: 5 BHS Progress Note (SOAP) Subjective: feeling better social with peers in day room tolerate food and fluid well Objective: 08/10/18 14:34 Vital Signs Temperature 98.1 F 08/10/18 09:48 Pulse Rate 81 08/10/18 09:48 Respiratory Rate 20 08/10/18 09:48 Blood Pressure 112/66 08/10/18 09:48 O2 Sat by Pulse Oximetry (%) Laboratory Last Values WBC 7.1 K/mm3 (4.0-10.0) 08/07/18 13:20 RBC 4.62 M/mm3 (3.60-5.2) 08/07/18 13:20 Hgb 13.4 GM/dL (10.7-15.3) 08/07/18 13:20 Hct 41.4 % (32.4-45.2) D 08/07/18 13:20 MCV 89.7 fl (80-96) 08/07/18 13:20 MCH 28.9 pg (25.7-33.7) 08/07/18 13:20 MCHC 32.2 g/dl (32.0-36.0) 08/07/18 13:20 RDW 18.5 % (11.6-15.6) H 08/07/18 13:20 Plt Count 186 K/MM3 (134-434) D 08/07/18 13:20 MPV 7.9 fl (7.5-11.1) 08/07/18 13:20 Sodium 136 mmol/L (136-145) 08/07/18 13:20 Potassium 3.9 mmol/L (3.5-5.1) 08/09/18 08:45 Chloride 97 mmol/L (98-107) L 08/07/18 13:20 Carbon Dioxide 28 mmol/L (21-32) 08/07/18 13:20 Anion Gap 11 MMOL/L (8-16) 08/07/18 13:20 BUN 11 mg/dL (7-18) 08/07/18 13:20 Creatinine 0.6 mg/dL (0.55-1.3) 08/07/18 13:20 Est GFR (CKD-EPI)AfAm 126.69 08/07/18 13:20 Est GFR (CKD-EPI)NonAf 109.31 08/07/18 13:20 Random Glucose 80 mg/dL (74-106) 08/07/18 13:20 Calcium 9.7 mg/dL (8.5-10.1) 08/07/18 13:20 Total Bilirubin 1.0 mg/dL (0.2-1) 08/07/18 13:20 AST 58 U/L (15-37) H 08/07/18 13:20 ALT 37 U/L (13-61) 08/07/18 13:20 Alkaline Phosphatase 109 U/L (45-117) 08/07/18 13:20 Total Protein 7.9 g/dl (6.4-8.2) 08/07/18 13:20 Albumin 4.4 g/dl (3.4-5.0) 08/07/18 13:20 POC Urine HCG, Qual Negative 08/07/18 11:11 RPR Titer Nonreactive (NONREACTIVE) 08/07/18 13:20 HIV 1&2 Antibody Screen Negative 08/07/18 12:15 HIV P24 Antigen Negative 08/07/18 12:15 lab noted Assessment: 08/10/18 14:34 mild withdrawal sx Plan: continue detox
--- NOTE | 2018-08-10 16:35 | PN ---
Psychiatric Progress Note Vital Signs: Vital Signs Period Temp Pulse Resp BP Sys/Gerardo Pulse Ox Last 24 Hr 96.5 F-98.5 F 73-91 16-20 112-148/66-84 Date of Session: 08/10/18 Chief Complaint:: " i need my effexor." HPI: Patient complaining of anxiety. States she has not taken effexor in five days. ROS: Patient tearful, anxious, coherent, alert and oriented X3. Current Medications: Active Medications Generic Name Dose Route Start Last Admin Trade Name Freq PRN Reason Stop Dose Admin Acetaminophen 650 mg 08/07/18 12:24 08/09/18 10:38 Tylenol - PO 650 mg Q6H PRN Administration PAIN LEVEL 4 - 6 Acetaminophen 650 mg 08/07/18 12:24 08/07/18 22:06 Tylenol - PO 650 mg Q6H PRN Administration FEVER Al Hydroxide/Mg Hydroxide 30 ml 08/07/18 12:24 Mylanta Oral Suspension - PO Q6H PRN DYSPEPSIA Bismuth Subsalicylate 30 ml 08/07/18 12:24 08/09/18 14:07 Pepto-Bismol Liquid - PO 30 ml Q1H PRN Administration DIARRHEA Buprenorphine/Naloxone 1 each 08/08/18 10:00 08/10/18 10:15 Suboxone 8mg/2mg Sl Film - SL 08/14/18 09:59 1 each DAILY ESTRELLA Administration Chlordiazepoxide HCl 10 mg 08/10/18 17:00 Librium - PO 08/11/18 17:01 Q12H ESTRELLA Chlordiazepoxide HCl 10 mg 08/09/18 17:00 Librium - PO 08/10/18 17:00 Q4H PRN WITHDRAWAL(CONT SUBST) Emtricitabine/Tenofovir 1 tab 08/08/18 10:00 08/10/18 10:15 Truvada PO 1 tab DAILY ESTRELLA Administration Eucalyptus/Menthol/Phenol/Sorbitol 1 each 08/07/18 12:24 Cepastat Lozenge - MM 08/13/18 12:24 Q4H PRN SORE THROAT Hydroxyzine Pamoate 50 mg 08/10/18 11:30 08/10/18 12:16 Vistaril - PO 08/13/18 12:24 50 mg Q4H PRN Administration For Anxiety Ibuprofen 400 mg 08/07/18 12:24 08/10/18 05:44 Motrin - PO 400 mg Q6H PRN Administration PAIN LEVEL 1 - 3 Magnesium Citrate 300 ml 08/07/18 12:24 Citroma - PO Q48H PRN CONSTIPATION Magnesium Hydroxide 30 ml 08/07/18 12:24 08/08/18 01:07 Milk Of Magnesia - PO 30 ml PRN PRN Administration CONSTIPATION Melatonin 5 mg 08/07/18 12:24 08/09/18 22:20 Melatonin PO 5 mg HS PRN Administration INSOMNIA Methocarbamol 500 mg 08/07/18 12:24 08/10/18 05:44 Robaxin - PO 08/13/18 12:24 500 mg Q6H PRN Administration MUSCLE SPASMS Multivit/Folic Acid/Iron 1 tab 08/08/18 10:00 08/10/18 10:15 Vitamins (Sjr) - PO 1 tab DAILY ESTRELLA Administration Raltegravir 400 mg 08/07/18 22:00 08/10/18 10:15 Isentress - PO 400 mg BID ESTRELLA Administration Thiamine HCl 100 mg 08/07/18 22:00 08/09/18 22:19 Vitamin B1 - PO 100 mg HS ESTRELLA Administration Medication(s) Change(s): Yes. will D/C vistaril 25mg q6h and order vistaril 50mg q4h and Seroquel 50mg HS. Current Side Effect: No Lab tests ordered: No Lab tests reviewed: Yes Provider note:: Patient approached mortgage underwriter to discuss effexor medications. Patient presents as tearful and anxious. Dr. Lea note read and appreciated. Patient requesting Effexor 225 . States she has not accepted medication in several days. [facility] pharmacy contacted and informed that patient most recently received a prescription for effexor 225 in March. Patient informed and than stated, " I don't know it's been a while since i last took it." Patient's is inconsistent with her history and appears that she is not currently taking effexor. Patient in agreement in accepting vistaril 50mg q4h for anxiety and seroquel 50mg for insomnia. Patient satisifed and receptive to feedback. Benefits and side effects discussed. Verbal consent given. Total face to face time:: 25 Mental Status Exam - Mental Status Exam Alert and Oriented to: Time, Place, Person Cognitive Function: Good Patient Appearance: Well Groomed Mood: Anxious Affect: Mood Congruent Patient Behavior: Crying (Tearful), Cooperative Speech Pattern: Appropriate Voice Loudness: Normal Thought Process: Goal Oriented Thought Disorder: Not Present Hallucinations: Denies Homicidal Ideation: Denies Insight/Judgement: Poor Sleep: Poorly Appetite: Poor Muscle strength/Tone: Normal Gait/Station: Normal Psychiatric Treatment Plan - Problem List (1) Alcohol dependence with uncomplicated withdrawal Comment: . (2) History of bipolar disorder Comment: By history. Non-adherent to OPD care. (3) Non-compliance Comment: . (4) Opioid dependence on agonist therapy Comment: . (5) Post traumatic stress disorder (PTSD) Comment: By history. Non-adherent to OPD care.
[2018-08-10] MEDS ORDERED: chlordiazePOXIDE HCL 10 MG CAPSULE PO SCH (17:00)
[2018-08-10 17:48] VITALS: BP 116/79; PULSE 84; TEMP 99.1
[2018-08-10] MEDS: BISMUTH SUBSALICYLATE 262 MG/15 ML BTL PO PRN (18:51)
--- NOTE | 2018-08-10 20:06 | PN ---
[facility] Progress Note Note: Patient very upset. needs to leave as has to go to rehab [facility]. Has to go home tonight so can be there early in the line. needs to complete treatment so she can get her son back. Vital Signs 08/10/18 17:47 Temperature 99.1 F Pulse Rate 84 Respiratory 18 Rate Blood Pressure 116/79 Laboratory Last Values WBC 7.1 K/mm3 (4.0-10.0) 08/07/18 13:20 RBC 4.62 M/mm3 (3.60-5.2) 08/07/18 13:20 Hgb 13.4 GM/dL (10.7-15.3) 08/07/18 13:20 Hct 41.4 % (32.4-45.2) D 08/07/18 13:20 MCV 89.7 fl (80-96) 08/07/18 13:20 MCH 28.9 pg (25.7-33.7) 08/07/18 13:20 MCHC 32.2 g/dl (32.0-36.0) 08/07/18 13:20 RDW 18.5 % (11.6-15.6) H 08/07/18 13:20 Plt Count 186 K/MM3 (134-434) D 08/07/18 13:20 MPV 7.9 fl (7.5-11.1) 08/07/18 13:20 Sodium 136 mmol/L (136-145) 08/07/18 13:20 Potassium 3.9 mmol/L (3.5-5.1) 08/09/18 08:45 Chloride 97 mmol/L (98-107) L 08/07/18 13:20 Carbon Dioxide 28 mmol/L (21-32) 08/07/18 13:20 Anion Gap 11 MMOL/L (8-16) 08/07/18 13:20 BUN 11 mg/dL (7-18) 08/07/18 13:20 Creatinine 0.6 mg/dL (0.55-1.3) 08/07/18 13:20 Est GFR (CKD-EPI)AfAm 126.69 08/07/18 13:20 Est GFR (CKD-EPI)NonAf 109.31 08/07/18 13:20 Random Glucose 80 mg/dL (74-106) 08/07/18 13:20 Calcium 9.7 mg/dL (8.5-10.1) 08/07/18 13:20 Total Bilirubin 1.0 mg/dL (0.2-1) 08/07/18 13:20 AST 58 U/L (15-37) H 08/07/18 13:20 ALT 37 U/L (13-61) 08/07/18 13:20 Alkaline Phosphatase 109 U/L (45-117) 08/07/18 13:20 Total Protein 7.9 g/dl (6.4-8.2) 08/07/18 13:20 Albumin 4.4 g/dl (3.4-5.0) 08/07/18 13:20 POC Urine HCG, Qual Negative 08/07/18 11:11 RPR Titer Nonreactive (NONREACTIVE) 08/07/18 13:20 HIV 1&2 Antibody Screen Negative 08/07/18 12:15 HIV P24 Antigen Negative 08/07/18 12:15 Labs reviewed. Relapse risks an prevention discussed. Patient discharged.
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
[2018-08-10] MEDS ORDERED: QUEtiapine FUMARATE 50 MG TABLET PO SCH (22:00)
== END 2018-08-10 20:52 | disposition home or self-care (01) | DRG 773 ==
LOC: YASAS 09:43 → Y3N 12:11
PROVIDERS: ADMIT Surgery; ATTEND Surgery
PROC: HZ2ZZZZ Detoxification Services for Substance Abuse Treatment (ICD-10-PCS; principal; 2018-08-07)
DX: F10.230 Alcohol dependence with withdrawal, uncomplicated (principal); F10.220 Alcohol dependence with intoxication, uncomplicated; F11.20 Opioid dependence, uncomplicated; F14.20 Cocaine dependence, uncomplicated; F17.210 Nicotine dependence, cigarettes, uncomplicated; F43.10 Post-traumatic stress disorder, unspecified; M79.81 Nontraumatic hematoma of soft tissue; Z98.84 Bariatric surgery status; Z91.19 Patient's noncompliance with other medical treatment and regimen; Z86.61 Personal history of infections of the central nervous system; Z86.69 Personal history of other diseases of the nervous system and sense organs; Z91.410 Personal history of adult physical and sexual abuse
CPT/HCPCS: 36415; 80053; 81025; 84132; 85027; 86593; 87389

== ENCOUNTER 2019-03-04 22:06 | Inpatient (IN) | payer OTHER ==
--- NOTE | 2019-03-04 23:13 | HP ---
CIWA Score Nausea/Vomitin Muscle Tremors: 2 Anxiety: 2 Agitation: 2 Paroxysmal Sweats: 2 Orientation: 0-Oriented Tacttile Disturbances: 2-Mild Itch/Numbness/Burn Auditory Disturbances: 2-Mild Harshness/Frighten Visual Disturbances: 2-Mild Sensitivity Headache: 2-Mild CIWA-Ar Total Score: 18 - Admission Criteria OASAS Guidelines: Admission for Medically Managed Detox: Requires at least one of the followin. CIWA greater than 12 2. Seizures within the past 24 hours 3. Delirium tremens within the past 24 hours 4. Hallucinations within the past 24 hours 5. Acute intervention needed for co occurring medical disorder 6. Acute intervention needed for co occurring psychiatric disorder 7. Severe withdrawal that cannot be handled at a lower level of care (continued vomiting, continued diarrhea, abnormal vital signs) requiring intravenous medication and/or fluids 8. Admitting History and Physical - Past Medical History ...LMP: 07/20/18 - Smoking History Smoking history: Current every day smoker Have you smoked in the past 12 months: No Aproximately how many cigarettes per day: 2 - Alcohol/Substance Use Hx Alcohol Use: Yes Admission ROS S - [facility] Chief Complaint: DEPENDENT ON ETOH AND MARIJUANA ONCE IN A MONTH Allergies/Adverse Reactions: Allergies Allergy/AdvReac Type Severity Reaction Status Date / Time Penicillins Allergy Mild Verified 03/04/19 22:27 latex [Latex] AdvReac Intermediate Verified 03/04/19 22:27 Apple Allergy Mild Uncoded 03/04/19 22:27 Carrot Allergy Mild Uncoded 03/04/19 22:27 History of Present Illness: THE PT. IS REQUESTING ADMISSION TO THE DETOX UNIT AND CAME FOR MEDICAL CLEARANCE Exam Limitations: No Limitations - Ebola screening Have you traveled outside of the country in the last 21 days: No (N) Have you had contact with anyone from an Ebola affected area: No Do you have a fever: No - Review of Systems Constitutional: See HPI, Malaise, Weakness EENT: reports: See HPI Respiratory: reports: See HPI Cardiac: reports: See HPI GI: reports: See HPI, Nausea, Abdominal cramping : reports: No Symptoms Reported, See HPI Musculoskeletal: reports: See HPI, Muscle Pain, Muscle Weakness Integumentary: reports: See HPI Neuro: reports: See HPI, Headache, Tremors, Weakness Endocrine: reports: See HPI Hematology: reports: See HPI Psychiatric: reports: Judgement Intact, Orientated x3, Anxious, Depressed Patient History - Patient Medical History Hx Anemia: No Hx Asthma: No Hx Chronic Obstructive Pulmonary Disease (COPD): No Hx Cancer: No Hx Cardiac Disorders: No Hx Hypertension: No Hx Hypercholesterolemia: No Hx Pacemaker: No HX Cerebrovascular Accident: No Hx Seizures: Yes (10 years ago - alcohol related) Hx Diabetes: No Hx Gastrointestinal Disorders: No Hx Liver Disease: No Hx Genitourinary Disorders: No Hx Sexually Transmitted Disorders: No Hx Renal Disease (ESRD): No Hx Thyroid Disease: No Hx Human Immunodeficiency Virus (HIV): No Hx Hepatitis C: No Hx Depression: Yes (on meds, history of hospitalization for psych) Hx Suicide Attempt: No Hx Bipolar Disorder: Yes (sees psych) Hx Schizophrenia: No Other Medical History: ANXIETY AND PTSD - Patient Surgical History Past Surgical History: Yes Hx Neurologic Surgery: No Hx Cataract Extraction: No Hx Cardiac Surgery: No Hx Lung Surgery: No Hx Breast Surgery: No Hx Breast Biopsy: No Hx Abdominal Surgery: Yes (gastric bypass 2002 (lost over 100lbs)) Hx Appendectomy: No Hx Cholecystectomy: No Hx Genitourinary Surgery: No Hx Section: No Hx Orthopedic Surgery: Yes (right knee arthroscopy 1990; back surgery 1995) Other Surgical History: FUSION OF L4-S1 IN 1995 Anesthesia Reaction: No - PPD History Date: 07/24/18 Results: 0 mm - Reproductive History Last Menstrual Period: 07/20/18 Patient : No - Smoking Cessation Smoking history: Current every day smoker Have you smoked in the past 12 months: No Aproximately how many cigarettes per day: 2 Hx Chewing Tobacco Use: No Initiated information on smoking cessation: Yes 'Breaking Loose' booklet given: 03/04/19 - Substance & Tx. History Hx Alcohol Use: Yes Hx Substance Use: No Substance Use Type: Alcohol, Marijuana Hx Substance Use Treatment: Yes - Substances abused Alcohol Substance route: Oral Frequency: Daily Amount used: 1/5th of vodka Age of first use: 6 Date of last use: 03/04/19 Marijuana/Hashish Substance route: Smoking Frequency: 1-3 times last 30 days Amount used: $10/ONCE A MONTH Age of first use: 11 Date of last use: 02/04/19 Admission Physical Exam BHS - Vital Signs Vital Signs: Vital Signs - 24 hr 03/04/19 22:52 Temperature 98.7 F Pulse Rate 97 H Respiratory 18 Rate Blood Pressure 109/68 - Physical General Appearance: Yes: No Apparent Distress, Nourished, Appropriately Dressed , Alcohol on Breath, Tremorous, Sweating, Anxious HEENTM: Yes: Hearing grossly Normal, Normocephalic, Normal Voice, LEATHA, Pharynx Normal Respiratory: Yes: Chest Non-Tender, Lungs Clear, Normal Breath Sounds, No Respiratory Distress, No Accessory Muscle Use Neck: Yes: No masses,lesions,Nodules, Supple, Trachea in good position Breast: Yes: Breast Exam Deferred, Axillae without masses Cardiology: Yes: Regular Rhythm, S1, S2, Tachycardia Abdominal: Yes: Normal Bowel Sounds, Non Tender, Soft, Protuberent Back: Yes: Normal Inspection Musculoskeletal: Yes: full range of Motion, Gait Steady, Pelvis Stable, Muscle Pain, Muscle weakness Extremities: Yes: Normal Capillary Refill, Normal Range of Motion, Non-Tender, Tremors 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: 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: 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 NML intact, Fully Oriented, Alert, Motor Strength 5/5, Normal Response, Depressed Affect Integumentary: Yes: Normal Color, Warm, Moist - Diagnostic (1) Anxiety disorder Current Visit: Yes Status: Chronic Qualifiers: Anxiety disorder type: generalized anxiety disorder Qualified Code(s): F41.1 - Generalized anxiety disorder (2) Alcohol dependence with uncomplicated intoxication Current Visit: No Status: Chronic (3) History of back surgery Current Visit: No Status: Resolved (4) ADHD (attention deficit hyperactivity disorder) Current Visit: No Status: Chronic Qualifiers: Attention deficit-hyperactivity disorder type: unspecified Qualified Code(s ): F90.9 - Attention-deficit hyperactivity disorder, unspecified type Comment: .on meds (5) History of bipolar disorder Current Visit: No Status: Chronic Comment: By history. Non-adherent to OPD care. (6) History of gastric bypass Current Visit: No Status: Chronic (7) Post traumatic stress disorder (PTSD) Current Visit: No Status: Chronic Comment: By history. Non-adherent to OPD care. (8) Marijuana abuse Current Visit: Yes Status: Acute Cleared for Admission S - Detox or Rehab S Level of Care: Medically Supervised Detox Regimen/Protocol: Valium Breathalyzer - Breathalyzer Breathalyzer: 0 POC Urine test - Test device test lot number: [id number] Expiration date: 11/26/19 - Control test control: Yes Urine Drug Screen - Test Device Lot number: [id number] Expiration date: 10/24/20 - Control Is test valid?: Yes - Results Drug screen NEGATIVE: No Urine drug screen results: BZO-Benzodiazepines Inpatient Rehab Admission - Rehab Decision to Admit Inpatient rehab admission?: No
[2019-03-04 23:18] VITALS: BMI 31.0
[2019-03-04] MEDS ORDERED: MENTHOL/PHENOL 1 EACH UD MM PRN (23:19)
[2019-03-04] MEDS ORDERED: MAG HYDROX/AL HYDROX/SIMETH 30 ML UNIT-DOSE CUP PO PRN (23:19)
[2019-03-04] MEDS ORDERED: BISMUTH SUBSALICYLATE 524 MG/30 ML UD PO PRN (23:19)
[2019-03-04] MEDS ORDERED: hydrOXYzine PAMOATE 25 MG CAPSULE (FP) PO PRN (23:19)
[2019-03-04] MEDS ORDERED: METHOCARBAMOL 500 MG TABLET PO PRN (23:19)
[2019-03-04] MEDS ORDERED: diazePAM 5 MG TABLET PO ONE (23:19)
[2019-03-04] MEDS ORDERED: ACETAMINOPHEN 325 MG TABLET (FP) PO PRN ×2 (23:19)
[2019-03-04] MEDS ORDERED: MAGNESIUM HYDROX 2400MG/30ML ORAL SUSPENSION 30 ML CUP PO PRN (23:19)
[2019-03-04] MEDS ORDERED: MAGNESIUM CITRATE 300 ML BOTTLE PO PRN (23:19)
[2019-03-04] MEDS ORDERED: NICOTINE POLACRILEX 2 MG GUM BUC PRN (23:19)
[2019-03-04] MEDS: diazePAM 5 MG TABLET PO SCH (23:53)
[2019-03-05] MEDS: diazePAM 5 MG TABLET PO PRN ×3 (01:13→18:42)
[2019-03-05] MEDS: MELATONIN 5 MG TABLETS PO PRN ×2 (02:37→22:13)
[2019-03-05] MEDS: hydrOXYzine PAMOATE 25 MG CAPSULE (FP) PO PRN ×2 (03:41→22:19)
[2019-03-05] MEDS: diazePAM 5 MG TABLET PO SCH ×3 (05:39→22:13)
[2019-03-05] MEDS: TOPIRAMATE 100 MG TABLET PO SCH ×2 (05:40→10:05)
[2019-03-05] MEDS: VENLAFAXINE HCL 75 MG E.R. CAPSULES (FP) PO SCH (10:05)
[2019-03-05] MEDS: PRENATAL VITAMINS W/ FOLIC ACID TABLET (FP) PO SCH (10:06)
[2019-03-05 11:00] LABS: HEMATOCRIT 35.5 % (32.4-45.2); HEMOGLOBIN 11.4 GM/dL (10.7-15.3); MCH 27.4 pg (25.7-33.7); MCHC 32.1 g/dl (32.0-36.0); MEAN CELL VOLUME 85.4 fl (80-96); MEAN PLT VOLUME 6.8 fl (7.5-11.1); PLATELET COUNT 278 K/MM3 (134-434); RBC 4.15 M/mm3 (3.60-5.2); RDW 21.5 % (11.6-15.6); WHITE BLOOD COUNT 5.6 K/mm3 (4.0-10.0)
[2019-03-05 11:20] LABS: ALBUMIN 3.7 g/dl (3.4-5.0); BILIRUBIN,TOTAL 0.9 mg/dL (0.2-1); BLOOD UREA NITROGEN 12.6 mg/dL (7-18); CALCIUM 9.5 mg/dL (8.5-10.1); CREATININE 0.5 mg/dL (0.55-1.3); POTASSIUM 4.3 mmol/L (3.5-5.1); TOT PROT 7.2 g/dl (6.4-8.2)
--- NOTE | 2019-03-05 11:50 | PN ---
S CIWA - CIWA Score Nausea/Vomitin-No Nausea/No Vomiting Muscle Tremors: 3 Anxiety: 3 Agitation: 3 Paroxysmal Sweats: 3 Orientation: 0-Oriented Tacttile Disturbances: 0-None Auditory Disturbances: 0-None Visual Disturbances: 0-None Headache: 0-None Present CIWA-Ar Total Score: 12 S Progress Note (SOAP) Subjective: shakes sweats body aches interrupted sleep anxiety irritable Objective: 03/05/19 11:50 Vital Signs Temperature 98.1 F 03/05/19 08:34 Pulse Rate 70 03/05/19 08:34 Respiratory Rate 18 03/05/19 08:34 Blood Pressure 117/63 03/05/19 08:34 O2 Sat by Pulse Oximetry (%) Laboratory Tests 03/05/19 03/05/19 07:50 07:50 WBC 5.6 RBC 4.15 Hgb 11.4 Hct 35.5 MCV 85.4 MCH 27.4 MCHC 32.1 RDW 21.5 H Plt Count 278 D MPV 6.8 L D Sodium 138 Potassium 4.3 Chloride 100 Carbon Dioxide 31 Anion Gap 7 L BUN 12.6 Creatinine 0.5 L Est GFR (CKD-EPI)AfAm 133.58 Est GFR (CKD-EPI)NonAf 115.25 Random Glucose 118 H Calcium 9.5 Total Bilirubin 0.9 AST 29 ALT 26 Alkaline Phosphatase 85 Total Protein 7.2 Albumin 3.7 labs noted aaox3 ambulating no acute distress Assessment: 03/05/19 11:50 withdrawals Plan: continue detox increase fluids
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
[2019-03-05] MEDS: VENLAFAXINE HCL 150 MG E.R. CAPSULE PO SCH (15:38)
[2019-03-05] MEDS: IBUPROFEN 400 MG TABLET (FP) PO PRN (17:15)
[2019-03-05] MEDS: THIAMINE HCL 100 MG TABLET (FP) PO SCH (22:12)
[2019-03-05] MEDS: TOPIRAMATE 25 MG TABLET (FP) PO SCH (22:15)
[2019-03-06] MEDS: diazePAM 5 MG TABLET PO PRN ×4 (03:26→22:08)
[2019-03-06] MEDS: IBUPROFEN 400 MG TABLET (FP) PO PRN ×2 (03:26→09:52)
[2019-03-06] MEDS: diazePAM 5 MG TABLET PO SCH ×2 (05:28→17:41)
[2019-03-06] MEDS: hydrOXYzine PAMOATE 25 MG CAPSULE (FP) PO PRN ×4 (05:28→23:28)
[2019-03-06] MEDS ORDERED: ONDANSETRON *ODT* 4 MG TABLET SL PRN (09:04)
[2019-03-06] MEDS: PRENATAL VITAMINS W/ FOLIC ACID TABLET (FP) PO SCH (10:32)
[2019-03-06] MEDS: TOPIRAMATE 25 MG TABLET (FP) PO SCH ×2 (10:32→22:09)
[2019-03-06] MEDS: VENLAFAXINE HCL 150 MG E.R. CAPSULE PO SCH (10:32)
[2019-03-06] MEDS: VENLAFAXINE HCL 75 MG E.R. CAPSULES (FP) PO SCH (10:32)
--- NOTE | 2019-03-06 12:05 | PN ---
S CIWA - CIWA Score Nausea/Vomitin-Mild Nausea/No Vomiting Muscle Tremors: 2 Anxiety: 1-Mildly Anxious Agitation: 2 Paroxysmal Sweats: 1-Minimal Palms Moist Orientation: 0-Oriented Tacttile Disturbances: 0-None Auditory Disturbances: 0-None Visual Disturbances: 0-None Headache: 0-None Present CIWA-Ar Total Score: 7 S Progress Note (SOAP) Subjective: nausea anxiety Objective: 03/06/19 12:05 Vital Signs Temperature 97.9 F 03/06/19 09:24 Pulse Rate 66 03/06/19 09:24 Respiratory Rate 18 03/06/19 09:24 Blood Pressure 143/98 03/06/19 09:24 O2 Sat by Pulse Oximetry (%) Laboratory Tests 03/05/19 03/05/19 03/05/19 07:50 07:50 07:50 WBC 5.6 RBC 4.15 Hgb 11.4 Hct 35.5 MCV 85.4 MCH 27.4 MCHC 32.1 RDW 21.5 H Plt Count 278 D MPV 6.8 L D Sodium 138 Potassium 4.3 Chloride 100 Carbon Dioxide 31 Anion Gap 7 L BUN 12.6 Creatinine 0.5 L Est GFR (CKD-EPI)AfAm 133.58 Est GFR (CKD-EPI)NonAf 115.25 Random Glucose 118 H Calcium 9.5 Total Bilirubin 0.9 AST 29 ALT 26 Alkaline Phosphatase 85 Total Protein 7.2 Albumin 3.7 RPR Titer Nonreactive aaox3 ambulating no acute distress Assessment: 03/06/19 12:05 mild withdrawals Plan: continue detox d/c in am
[2019-03-06] MEDS: IBUPROFEN 600 MG TABLET (FP) PO PRN ×2 (16:56→23:27)
[2019-03-06] MEDS: THIAMINE HCL 100 MG TABLET (FP) PO SCH (22:09)
[2019-03-06] MEDS: MELATONIN 5 MG TABLETS PO PRN (23:26)
[2019-03-07] MEDS: IBUPROFEN 600 MG TABLET (FP) PO PRN (05:37)
[2019-03-07] MEDS: hydrOXYzine PAMOATE 25 MG CAPSULE (FP) PO PRN (05:38)
[2019-03-07] MEDS ORDERED: diazePAM 5 MG TABLET PO ONE (06:00)
[2019-03-07] MEDS: diazePAM 5 MG TABLET PO PRN (07:57)
[2019-03-07 09:33] VITALS: BP 120/78; PULSE 73; TEMP 98.1
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
[2019-03-07] MEDS: TOPIRAMATE 25 MG TABLET (FP) PO SCH (10:25)
[2019-03-07] MEDS: PRENATAL VITAMINS W/ FOLIC ACID TABLET (FP) PO SCH (10:25)
[2019-03-07] MEDS: VENLAFAXINE HCL 150 MG E.R. CAPSULE PO SCH (10:25)
[2019-03-07] MEDS: VENLAFAXINE HCL 75 MG E.R. CAPSULES (FP) PO SCH (10:25)
== END 2019-03-07 11:19 | disposition home or self-care (01) | DRG 774 ==
LOC: YASAS 22:06 → Y6N 23:19
PROVIDERS: ADMIT Allergy & Immunology; ATTEND Allergy & Immunology
PROC: HZ2ZZZZ Detoxification Services for Substance Abuse Treatment (ICD-10-PCS; principal; 2019-03-04)
DX: F10.230 Alcohol dependence with withdrawal, uncomplicated (principal); F14.20 Cocaine dependence, uncomplicated; F12.10 Cannabis abuse, uncomplicated; F10.24 Alcohol dependence with alcohol-induced mood disorder; F10.282 Alcohol dependence with alcohol-induced sleep disorder; F31.9 Bipolar disorder, unspecified; F41.1 Generalized anxiety disorder; F90.9 Attention-deficit hyperactivity disorder, unspecified type; F43.10 Post-traumatic stress disorder, unspecified; G47.00 Insomnia, unspecified; R56.9 Unspecified convulsions; Z51.81 Encounter for therapeutic drug level monitoring; Z98.84 Bariatric surgery status; Z88.1 Allergy status to other antibiotic agents; Z88.8 Allergy status to other drugs, medicaments and biological substances; Z91.040 Latex allergy status
CPT/HCPCS: 36415; 80053; 85027; 86593; Q0162

== ENCOUNTER 2020-05-08 15:01 | Inpatient (IN) | payer OTHER ==
[2020-05-08 16:52] VITALS: BMI 34.9
[2020-05-08] MEDS ORDERED: IBUPROFEN 400 MG TABLET (FP) PO PRN (18:24)
[2020-05-08] MEDS ORDERED: guaiFENesin 200 MG/10 ML 10 ML UNIT-DOSE CUPS PO PRN (18:24)
[2020-05-08] MEDS ORDERED: MAGNESIUM CITRATE 300 ML BOTTLE PO PRN (18:24)
[2020-05-08] MEDS ORDERED: P-EPHED 60MG/TRIPROLIDI 2.5MG TABLET PO PRN (18:24)
[2020-05-08] MEDS ORDERED: hydrOXYzine PAMOATE 25 MG CAPSULE (FP) PO PRN (18:24)
[2020-05-08] MEDS ORDERED: LOPERAMIDE HCL 2 MG CAPSULE PO PRN (18:24)
[2020-05-08] MEDS ORDERED: MAGNESIUM HYDROX 2400MG/30ML ORAL SUSPENSION 30 ML CUP PO PRN (18:24)
[2020-05-08] MEDS: MELATONIN 5 MG TABLETS PO SCH (21:23)
[2020-05-08] MEDS: THIAMINE HCL 100 MG TABLET (FP) PO SCH (21:23)
[2020-05-08] MEDS ORDERED: SUVOREXANT 10 MG TABLET PO ONE (22:00)
[2020-05-08] MEDS ORDERED: VALPROATE SODIUM 250 MG/5 ML UNIT DOSE CUP PO ONE (22:00)
[2020-05-08] MEDS ORDERED: SUVOREXANT 5 MG TABLET PO ONE (22:00)
[2020-05-08] MEDS ORDERED: GABAPENTIN 300 MG CAPSULE PO ONE (22:01)
[2020-05-08] MEDS ORDERED: traZODone HCL 50 MG TABLET (FP) PO ONE (22:03)
[2020-05-09] MEDS ORDERED: CYCLOBENZAPRINE HCL 10 MG TABLET (FP) PO ONE (10:00)
[2020-05-09] MEDS: PRENATAL VITAMINS W/ FOLIC ACID TABLET (FP) PO SCH (10:56)
[2020-05-09] MEDS: LIDOCAINE 5% TOPICAL PATCH TP SCH (10:56)
[2020-05-09] MEDS: hydrOXYzine PAMOATE 25 MG CAPSULE (FP) PO PRN (10:58)
[2020-05-09 11:07] LABS: HEMATOCRIT 32.3 % (32.4-45.2); HEMOGLOBIN 10.3 GM/dL (10.7-15.3); MCH 24.8 pg (25.7-33.7); MCHC 31.8 g/dl (32.0-36.0); MEAN CELL VOLUME 77.8 fl (80-96); MEAN PLT VOLUME 7.2 fl (7.5-11.1); PLATELET COUNT 226 K/MM3 (134-434); RBC 4.15 M/mm3 (3.60-5.2); RDW 20.1 % (11.6-15.6)
[2020-05-09 11:16] LABS: POTASSIUM 3.8 mmol/L (3.5-5.1)
[2020-05-09 11:20] LABS: ALBUMIN 3.3 g/dl (3.4-5.0); BLOOD UREA NITROGEN 19.2 mg/dL (7-18); CALCIUM 8.5 mg/dL (8.5-10.1)
[2020-05-09 11:23] LABS: CREATININE 0.6 mg/dL (0.55-1.3)
[2020-05-09 11:25] LABS: TOT PROT 6.8 g/dl (6.4-8.2)
[2020-05-09 11:39] LABS: EPI CELLS 5 /uL (0-25.1); HYALINE CASTS 3 /uL (0-3.1); PH,URINE 5.5 (5.0-8.0); URINE APPEARANCE CLOUDY; URINE BACTERIA >9,000 /uL (0-1359); URINE BILIRUBIN NEGATIVE (NEGATIVE); URINE COLOR YELLOW; URINE GLUCOSE (UA) NEGATIVE (NEGATIVE); URINE KETONE NEGATIVE (NEGATIVE); URINE LEUK ESTERASE 1+ (NEGATIVE); URINE NITRITE POSITIVE (NEGATIVE); URINE PROTEIN NEGATIVE (NEGATIVE); URINE RBC 25 /uL (0-23.9); URINE WBC 207 /uL (0-25.8)
[2020-05-09] MEDS: IBUPROFEN 600 MG TABLET (FP) PO PRN ×2 (15:48→21:36)
[2020-05-09] MEDS: CYCLOBENZAPRINE HCL 10 MG TABLET (FP) PO PRN (15:51)
[2020-05-09] MEDS: MELATONIN 5 MG TABLETS PO SCH (21:35)
[2020-05-09] MEDS: THIAMINE HCL 100 MG TABLET (FP) PO SCH (21:36)
[2020-05-09] MEDS: risperiDONE 2 MG TABLET PO SCH (21:37)
[2020-05-09] MEDS: TOPIRAMATE 25 MG TABLET PO SCH (21:37)
[2020-05-09] MEDS: GABAPENTIN 400 MG CAPSULE PO SCH (21:37)
[2020-05-09] MEDS: PRAZOSIN HCL 1 MG CAPSULE PO SCH (21:37)
[2020-05-09] MEDS: LIDOCAINE PATCH REMOVAL MC SCH (21:40)
[2020-05-09] MEDS: traZODone HCL 50 MG TABLET (FP) PO SCH (22:51)
[2020-05-10] MEDS: GABAPENTIN 400 MG CAPSULE PO SCH ×3 (06:16→21:28)
[2020-05-10] MEDS: IBUPROFEN 600 MG TABLET (FP) PO PRN ×2 (06:17→14:04)
[2020-05-10] MEDS: PRENATAL VITAMINS W/ FOLIC ACID TABLET (FP) PO SCH (10:30)
[2020-05-10] MEDS: DIVALPROEX NA *ER* EXTEND REL 500 MG TABLET.SA (FP) PO SCH (10:31)
[2020-05-10] MEDS: LIDOCAINE 5% TOPICAL PATCH TP SCH (10:32)
[2020-05-10] MEDS: TOPIRAMATE 25 MG TABLET PO SCH ×2 (10:32→21:28)
[2020-05-10] MEDS: hydrOXYzine PAMOATE 25 MG CAPSULE (FP) PO PRN ×2 (10:33→21:28)
[2020-05-10] MEDS: CYCLOBENZAPRINE HCL 10 MG TABLET (FP) PO PRN ×3 (10:35→21:28)
[2020-05-10] MEDS: ACETAMINOPHEN 325 MG TABLET (FP) PO PRN (10:36)
[2020-05-10 18:44] LABS: EPI CELLS 16 /uL (0-25.1); HYALINE CASTS 13 /uL (0-3.1); URINE APPEARANCE CLOUDY; URINE BACTERIA >9,000 /uL (0-1359); URINE BILIRUBIN NEGATIVE (NEGATIVE); URINE COLOR DK YELLOW; URINE GLUCOSE (UA) NEGATIVE (NEGATIVE); URINE KETONE TRACE (NEGATIVE); URINE LEUK ESTERASE 2+ (NEGATIVE); URINE NITRITE POSITIVE (NEGATIVE); URINE PROTEIN NEGATIVE (NEGATIVE); URINE RBC 49 /uL (0-23.9); URINE WBC 237 /uL (0-25.8)
[2020-05-10] MEDS ORDERED: MASKS NR ONE (19:33)
[2020-05-10 20:18] LABS: URINE CRYSTALS MODERATE /hpf
[2020-05-10] MEDS: THIAMINE HCL 100 MG TABLET (FP) PO SCH (21:26)
[2020-05-10] MEDS: risperiDONE 2 MG TABLET PO SCH (21:27)
[2020-05-10] MEDS: PRAZOSIN HCL 1 MG CAPSULE PO SCH (21:27)
[2020-05-10] MEDS: traZODone HCL 50 MG TABLET (FP) PO SCH (21:27)
[2020-05-10] MEDS: MELATONIN 5 MG TABLETS PO SCH (21:32)
[2020-05-10] MEDS: LIDOCAINE PATCH REMOVAL MC SCH (21:32)
[2020-05-11] MEDS: CYCLOBENZAPRINE HCL 10 MG TABLET (FP) PO PRN ×3 (05:19→21:22)
[2020-05-11] MEDS: IBUPROFEN 600 MG TABLET (FP) PO PRN ×2 (05:19→15:17)
[2020-05-11] MEDS: GABAPENTIN 400 MG CAPSULE PO SCH ×3 (06:14→21:22)
[2020-05-11] MEDS: LIDOCAINE 5% TOPICAL PATCH TP SCH (10:31)
[2020-05-11] MEDS: PRENATAL VITAMINS W/ FOLIC ACID TABLET (FP) PO SCH (10:31)
[2020-05-11] MEDS: TOPIRAMATE 25 MG TABLET PO SCH ×2 (10:31→21:22)
[2020-05-11] MEDS: DIVALPROEX NA *ER* EXTEND REL 500 MG TABLET.SA (FP) PO SCH (10:32)
[2020-05-11] MEDS: hydrOXYzine PAMOATE 25 MG CAPSULE (FP) PO PRN ×2 (10:32→21:22)
[2020-05-11] MEDS: MAG HYDROX/AL HYDROX/SIMETH 30 ML UNIT-DOSE CUP PO PRN (21:21)
[2020-05-11] MEDS: traZODone HCL 50 MG TABLET (FP) PO SCH ×2 (21:22→23:42)
[2020-05-11] MEDS: risperiDONE 2 MG TABLET PO SCH (21:22)
[2020-05-11] MEDS: PRAZOSIN HCL 1 MG CAPSULE PO SCH (21:22)
[2020-05-11] MEDS: THIAMINE HCL 100 MG TABLET (FP) PO SCH (21:25)
[2020-05-11] MEDS: LIDOCAINE PATCH REMOVAL MC SCH (21:25)
[2020-05-11] MEDS: MELATONIN 5 MG TABLETS PO SCH (21:25)
[2020-05-12] MEDS: IBUPROFEN 600 MG TABLET (FP) PO PRN ×3 (02:30→22:00)
[2020-05-12] MEDS: CYCLOBENZAPRINE HCL 10 MG TABLET (FP) PO PRN ×2 (02:30→10:23)
[2020-05-12] MEDS: hydrOXYzine PAMOATE 25 MG CAPSULE (FP) PO PRN ×2 (03:24→10:21)
[2020-05-12] MEDS: GABAPENTIN 400 MG CAPSULE PO SCH ×3 (06:28→21:50)
[2020-05-12] MEDS: MAG HYDROX/AL HYDROX/SIMETH 30 ML UNIT-DOSE CUP PO PRN (06:33)
[2020-05-12] MEDS: TOPIRAMATE 25 MG TABLET PO SCH ×2 (10:20→21:53)
[2020-05-12] MEDS: PRENATAL VITAMINS W/ FOLIC ACID TABLET (FP) PO SCH (10:21)
[2020-05-12] MEDS: DIVALPROEX NA *ER* EXTEND REL 500 MG TABLET.SA (FP) PO SCH (10:21)
[2020-05-12] MEDS: LIDOCAINE 5% TOPICAL PATCH TP SCH (10:22)
[2020-05-12] MEDS ORDERED: COLLOIDAL OATMEAL 1 BAR EACH TP PRN (10:29)
[2020-05-12] MEDS: SULFAMETHOXAZOLE/TRIMETHOPRIM 800MG/160MG D.S. TABLET PO SCH ×2 (11:30→21:52)
[2020-05-12] MEDS: MINERAL OIL/PETROLAT/WATER TOPICAL CREAM 113 GM JAR TP SCH ×2 (11:31→21:56)
[2020-05-12] MEDS ORDERED: PT OWN MED DRAWER 7, Y5N ONE ×3 (12:24→21:10)
[2020-05-12] MEDS ORDERED: ALBUTEROL SO4 HFA INHALER IH ONE (18:34)
[2020-05-12] MEDS ORDERED: ALBUTEROL SO4 HFA INHALER IH PRN (19:13)
[2020-05-12] MEDS: traZODone HCL 50 MG TABLET (FP) PO SCH (21:50)
[2020-05-12] MEDS: risperiDONE 2 MG TABLET PO SCH (21:51)
[2020-05-12] MEDS: PRAZOSIN HCL 1 MG CAPSULE PO SCH (21:52)
[2020-05-12] MEDS: THIAMINE HCL 100 MG TABLET (FP) PO SCH (21:53)
[2020-05-12] MEDS: MELATONIN 5 MG TABLETS PO SCH (21:53)
[2020-05-12] MEDS: CLINDAMYCIN PHOSPHATE 1% TOPICAL GEL 30 GM TUBE TP SCH (21:57)
[2020-05-12] MEDS: LIDOCAINE PATCH REMOVAL MC SCH (21:57)
[2020-05-13] MEDS: GABAPENTIN 400 MG CAPSULE PO SCH ×3 (06:20→21:17)
[2020-05-13] MEDS: ACETAMINOPHEN 325 MG TABLET (FP) PO PRN (06:22)
[2020-05-13] MEDS ORDERED: PT OWN MED DRAWER 7, Y5N ONE ×6 (09:04→21:48)
[2020-05-13] MEDS: SULFAMETHOXAZOLE/TRIMETHOPRIM 800MG/160MG D.S. TABLET PO SCH ×2 (10:32→21:17)
[2020-05-13] MEDS: TOPIRAMATE 25 MG TABLET PO SCH ×2 (10:32→21:52)
[2020-05-13] MEDS: PRENATAL VITAMINS W/ FOLIC ACID TABLET (FP) PO SCH (10:32)
[2020-05-13] MEDS: LIDOCAINE 5% TOPICAL PATCH TP SCH (10:34)
[2020-05-13] MEDS: IBUPROFEN 600 MG TABLET (FP) PO PRN ×2 (10:35→19:22)
[2020-05-13] MEDS: hydrOXYzine PAMOATE 25 MG CAPSULE (FP) PO PRN ×2 (10:35→19:21)
[2020-05-13] MEDS: MINERAL OIL/PETROLAT/WATER TOPICAL CREAM 113 GM JAR TP SCH ×2 (10:37→21:22)
[2020-05-13] MEDS: CLINDAMYCIN PHOSPHATE 1% TOPICAL GEL 30 GM TUBE TP SCH ×2 (10:55→21:17)
[2020-05-13] MEDS: DIVALPROEX NA *ER* EXTEND REL 500 MG TABLET.SA (FP) PO SCH (15:54)
[2020-05-13] MEDS: CYCLOBENZAPRINE HCL 10 MG TABLET (FP) PO PRN (19:21)
[2020-05-13] MEDS: risperiDONE 2 MG TABLET PO SCH (21:17)
[2020-05-13] MEDS: PRAZOSIN HCL 1 MG CAPSULE PO SCH (21:17)
[2020-05-13] MEDS: THIAMINE HCL 100 MG TABLET (FP) PO SCH (21:17)
[2020-05-13] MEDS: traZODone HCL 50 MG TABLET (FP) PO SCH (21:17)
[2020-05-13] MEDS: MELATONIN 5 MG TABLETS PO SCH (21:19)
[2020-05-13] MEDS: LIDOCAINE PATCH REMOVAL MC SCH (21:19)
[2020-05-14] MEDS: GABAPENTIN 400 MG CAPSULE PO SCH ×3 (06:30→21:21)
[2020-05-14] MEDS: CYCLOBENZAPRINE HCL 10 MG TABLET (FP) PO PRN ×2 (06:31→16:26)
[2020-05-14] MEDS: IBUPROFEN 600 MG TABLET (FP) PO PRN ×2 (06:32→14:09)
[2020-05-14] MEDS ORDERED: PT OWN MED DRAWER 7, Y5N ONE ×5 (09:02→20:29)
[2020-05-14] MEDS: LIDOCAINE 5% TOPICAL PATCH TP SCH (10:08)
[2020-05-14] MEDS: SULFAMETHOXAZOLE/TRIMETHOPRIM 800MG/160MG D.S. TABLET PO SCH ×2 (10:08→21:22)
[2020-05-14] MEDS: DIVALPROEX NA *ER* EXTEND REL 500 MG TABLET.SA (FP) PO SCH (10:09)
[2020-05-14] MEDS: TOPIRAMATE 25 MG TABLET PO SCH ×2 (10:09→21:20)
[2020-05-14] MEDS: CLINDAMYCIN PHOSPHATE 1% TOPICAL GEL 30 GM TUBE TP SCH ×2 (10:10→21:20)
[2020-05-14] MEDS: PRENATAL VITAMINS W/ FOLIC ACID TABLET (FP) PO SCH (10:10)
[2020-05-14] MEDS: MINERAL OIL/PETROLAT/WATER TOPICAL CREAM 113 GM JAR TP SCH ×2 (10:12→21:22)
[2020-05-14] MEDS: ACETAMINOPHEN 325 MG TABLET (FP) PO PRN (10:13)
[2020-05-14 14:47] LABS: HIV INTERPRETATION NEGATIVE (NEGATIVE)
[2020-05-14] MEDS: hydrOXYzine PAMOATE 25 MG CAPSULE (FP) PO PRN (16:35)
[2020-05-14] MEDS: PRAZOSIN HCL 1 MG CAPSULE PO SCH (21:21)
[2020-05-14] MEDS: MELATONIN 5 MG TABLETS PO SCH (21:21)
[2020-05-14] MEDS: THIAMINE HCL 100 MG TABLET (FP) PO SCH (21:21)
[2020-05-14] MEDS: risperiDONE 2 MG TABLET PO SCH (21:22)
[2020-05-14] MEDS: traZODone HCL 50 MG TABLET (FP) PO SCH (21:22)
[2020-05-14] MEDS: LIDOCAINE PATCH REMOVAL MC SCH (21:22)
[2020-05-15] MEDS: GABAPENTIN 400 MG CAPSULE PO SCH ×3 (06:20→21:31)
[2020-05-15] MEDS: CYCLOBENZAPRINE HCL 10 MG TABLET (FP) PO PRN ×2 (06:21→15:05)
[2020-05-15] MEDS: IBUPROFEN 600 MG TABLET (FP) PO PRN ×2 (06:21→15:07)
[2020-05-15] MEDS: busPIRone HCL 5 MG TABLET PO SCH ×3 (07:59→21:33)
[2020-05-15] MEDS ORDERED: PT OWN MED DRAWER 7, Y5N ONE ×2 (08:59→13:02)
[2020-05-15] MEDS: PRENATAL VITAMINS W/ FOLIC ACID TABLET (FP) PO SCH (09:56)
[2020-05-15] MEDS: LIDOCAINE 5% TOPICAL PATCH TP SCH (09:56)
[2020-05-15] MEDS: CLINDAMYCIN PHOSPHATE 1% TOPICAL GEL 30 GM TUBE TP SCH ×2 (09:57→21:33)
[2020-05-15] MEDS: SULFAMETHOXAZOLE/TRIMETHOPRIM 800MG/160MG D.S. TABLET PO SCH ×2 (09:57→21:32)
[2020-05-15] MEDS: TOPIRAMATE 25 MG TABLET PO SCH ×2 (09:58→21:34)
[2020-05-15] MEDS: DIVALPROEX NA *ER* EXTEND REL 500 MG TABLET.SA (FP) PO SCH (09:58)
[2020-05-15] MEDS: MINERAL OIL/PETROLAT/WATER TOPICAL CREAM 113 GM JAR TP SCH ×2 (09:59→21:34)
[2020-05-15] MEDS: HYDROCHLOROTHIAZIDE 12.5 MG CAPSULE (FP) PO SCH (09:59)
[2020-05-15] MEDS: MELATONIN 5 MG TABLETS PO SCH (21:30)
[2020-05-15] MEDS: LIDOCAINE PATCH REMOVAL MC SCH (21:30)
[2020-05-15] MEDS: THIAMINE HCL 100 MG TABLET (FP) PO SCH (21:30)
[2020-05-15] MEDS: risperiDONE 2 MG TABLET PO SCH (21:31)
[2020-05-15] MEDS: PRAZOSIN HCL 1 MG CAPSULE PO SCH (21:31)
[2020-05-15] MEDS: traZODone HCL 50 MG TABLET (FP) PO SCH (21:31)
[2020-05-16] MEDS ORDERED: PT OWN MED DRAWER 7, Y5N ONE ×3 (05:26→21:43)
[2020-05-16] MEDS: GABAPENTIN 400 MG CAPSULE PO SCH ×3 (06:29→21:18)
[2020-05-16] MEDS: busPIRone HCL 5 MG TABLET PO SCH ×3 (06:29→21:19)
[2020-05-16] MEDS: ACETAMINOPHEN 325 MG TABLET (FP) PO PRN (06:30)
[2020-05-16] MEDS: LIDOCAINE 5% TOPICAL PATCH TP SCH (10:21)
[2020-05-16] MEDS: HYDROCHLOROTHIAZIDE 12.5 MG CAPSULE (FP) PO SCH (10:21)
[2020-05-16] MEDS: SULFAMETHOXAZOLE/TRIMETHOPRIM 800MG/160MG D.S. TABLET PO SCH ×2 (10:21→21:19)
[2020-05-16] MEDS: CLINDAMYCIN PHOSPHATE 1% TOPICAL GEL 30 GM TUBE TP SCH ×2 (10:23→21:20)
[2020-05-16] MEDS: PRENATAL VITAMINS W/ FOLIC ACID TABLET (FP) PO SCH (10:23)
[2020-05-16] MEDS: DIVALPROEX NA *ER* EXTEND REL 500 MG TABLET.SA (FP) PO SCH (10:23)
[2020-05-16] MEDS: MINERAL OIL/PETROLAT/WATER TOPICAL CREAM 113 GM JAR TP SCH ×2 (10:23→21:20)
[2020-05-16] MEDS: AMMONIUM LACTATE 12% LOTION 225 GM BOTTLE TP PRN (10:24)
[2020-05-16] MEDS: TOPIRAMATE 25 MG TABLET PO SCH ×2 (11:31→21:21)
[2020-05-16] MEDS: IBUPROFEN 600 MG TABLET (FP) PO PRN (14:04)
[2020-05-16] MEDS: CYCLOBENZAPRINE HCL 10 MG TABLET (FP) PO PRN ×2 (14:05→21:18)
[2020-05-16] MEDS: THIAMINE HCL 100 MG TABLET (FP) PO SCH (21:18)
[2020-05-16] MEDS: LIDOCAINE PATCH REMOVAL MC SCH (21:18)
[2020-05-16] MEDS: MELATONIN 5 MG TABLETS PO SCH (21:18)
[2020-05-16] MEDS: PRAZOSIN HCL 1 MG CAPSULE PO SCH (21:19)
[2020-05-16] MEDS: traZODone HCL 50 MG TABLET (FP) PO SCH (21:19)
[2020-05-16] MEDS: risperiDONE 2 MG TABLET PO SCH (21:19)
[2020-05-17] MEDS ORDERED: PT OWN MED DRAWER 7, Y5N ONE ×7 (03:18→21:31)
[2020-05-17] MEDS: busPIRone HCL 5 MG TABLET PO SCH ×3 (06:13→21:29)
[2020-05-17] MEDS: CYCLOBENZAPRINE HCL 10 MG TABLET (FP) PO PRN (06:13)
[2020-05-17] MEDS: GABAPENTIN 400 MG CAPSULE PO SCH ×3 (06:13→21:29)
[2020-05-17] MEDS: IBUPROFEN 600 MG TABLET (FP) PO PRN ×3 (06:13→22:43)
[2020-05-17] MEDS: LIDOCAINE 5% TOPICAL PATCH TP SCH (09:54)
[2020-05-17] MEDS: SULFAMETHOXAZOLE/TRIMETHOPRIM 800MG/160MG D.S. TABLET PO SCH (09:54)
[2020-05-17] MEDS: MINERAL OIL/PETROLAT/WATER TOPICAL CREAM 113 GM JAR TP SCH ×2 (09:54→21:30)
[2020-05-17] MEDS: HYDROCHLOROTHIAZIDE 12.5 MG CAPSULE (FP) PO SCH (10:01)
[2020-05-17] MEDS: DIVALPROEX NA *ER* EXTEND REL 500 MG TABLET.SA (FP) PO SCH (10:02)
[2020-05-17] MEDS: TOPIRAMATE 25 MG TABLET PO SCH ×2 (10:02→21:28)
[2020-05-17] MEDS: PRENATAL VITAMINS W/ FOLIC ACID TABLET (FP) PO SCH (10:03)
[2020-05-17] MEDS: CLINDAMYCIN PHOSPHATE 1% TOPICAL GEL 30 GM TUBE TP SCH ×2 (10:05→21:30)
[2020-05-17] MEDS: THIAMINE HCL 100 MG TABLET (FP) PO SCH (21:28)
[2020-05-17] MEDS: MELATONIN 5 MG TABLETS PO SCH (21:29)
[2020-05-17] MEDS: risperiDONE 2 MG TABLET PO SCH (21:29)
[2020-05-17] MEDS: PRAZOSIN HCL 1 MG CAPSULE PO SCH (21:29)
[2020-05-17] MEDS: LIDOCAINE PATCH REMOVAL MC SCH (21:30)
[2020-05-17] MEDS: traZODone HCL 50 MG TABLET (FP) PO SCH (22:42)
[2020-05-18] MEDS ORDERED: PT OWN MED DRAWER 7, Y5N ONE ×3 (03:27→15:05)
[2020-05-18] MEDS: GABAPENTIN 400 MG CAPSULE PO SCH ×3 (06:19→21:23)
[2020-05-18] MEDS: busPIRone HCL 5 MG TABLET PO SCH ×3 (06:19→21:22)
[2020-05-18] MEDS: IBUPROFEN 600 MG TABLET (FP) PO PRN ×2 (06:19→15:18)
[2020-05-18] MEDS: CYCLOBENZAPRINE HCL 10 MG TABLET (FP) PO PRN (06:19)
[2020-05-18] MEDS: TOPIRAMATE 25 MG TABLET PO SCH ×2 (10:00→21:23)
[2020-05-18] MEDS: HYDROCHLOROTHIAZIDE 12.5 MG CAPSULE (FP) PO SCH (10:02)
[2020-05-18] MEDS: DIVALPROEX NA *ER* EXTEND REL 500 MG TABLET.SA (FP) PO SCH (10:03)
[2020-05-18] MEDS: PRENATAL VITAMINS W/ FOLIC ACID TABLET (FP) PO SCH (10:03)
[2020-05-18] MEDS: LIDOCAINE 5% TOPICAL PATCH TP SCH (10:04)
[2020-05-18] MEDS: CLINDAMYCIN PHOSPHATE 1% TOPICAL GEL 30 GM TUBE TP SCH ×2 (10:05→21:22)
[2020-05-18] MEDS: MINERAL OIL/PETROLAT/WATER TOPICAL CREAM 113 GM JAR TP SCH ×2 (10:05→21:24)
[2020-05-18] MEDS: LIDOCAINE PATCH REMOVAL MC SCH (21:22)
[2020-05-18] MEDS: THIAMINE HCL 100 MG TABLET (FP) PO SCH (21:22)
[2020-05-18] MEDS: MELATONIN 5 MG TABLETS PO SCH (21:22)
[2020-05-18] MEDS: traZODone HCL 50 MG TABLET (FP) PO SCH (21:23)
[2020-05-18] MEDS: risperiDONE 2 MG TABLET PO SCH (21:23)
[2020-05-18] MEDS: PRAZOSIN HCL 1 MG CAPSULE PO SCH (21:24)
[2020-05-19] MEDS: GABAPENTIN 400 MG CAPSULE PO SCH ×3 (06:12→21:08)
[2020-05-19] MEDS: busPIRone HCL 5 MG TABLET PO SCH ×3 (06:12→21:09)
[2020-05-19] MEDS: IBUPROFEN 600 MG TABLET (FP) PO PRN ×2 (06:12→13:56)
[2020-05-19] MEDS: CYCLOBENZAPRINE HCL 10 MG TABLET (FP) PO PRN ×2 (06:12→13:56)
[2020-05-19] MEDS ORDERED: PT OWN MED DRAWER 7, Y5N ONE ×4 (08:54→13:40)
[2020-05-19] MEDS: TOPIRAMATE 25 MG TABLET PO SCH ×2 (10:11→21:09)
[2020-05-19] MEDS: CLINDAMYCIN PHOSPHATE 1% TOPICAL GEL 30 GM TUBE TP SCH ×2 (10:13→21:10)
[2020-05-19] MEDS: DIVALPROEX NA *ER* EXTEND REL 500 MG TABLET.SA (FP) PO SCH (10:13)
[2020-05-19] MEDS: MINERAL OIL/PETROLAT/WATER TOPICAL CREAM 113 GM JAR TP SCH ×2 (10:14→21:10)
[2020-05-19] MEDS: LIDOCAINE 5% TOPICAL PATCH TP SCH (10:14)
[2020-05-19] MEDS: PRENATAL VITAMINS W/ FOLIC ACID TABLET (FP) PO SCH (10:15)
[2020-05-19] MEDS: AMMONIUM LACTATE 12% LOTION 225 GM BOTTLE TP PRN (10:17)
[2020-05-19] MEDS: HYDROCHLOROTHIAZIDE 12.5 MG CAPSULE (FP) PO SCH (11:11)
[2020-05-19] MEDS: risperiDONE 2 MG TABLET PO SCH (21:08)
[2020-05-19] MEDS: THIAMINE HCL 100 MG TABLET (FP) PO SCH (21:08)
[2020-05-19] MEDS: PRAZOSIN HCL 1 MG CAPSULE PO SCH (21:08)
[2020-05-19] MEDS: traZODone HCL 50 MG TABLET (FP) PO SCH (21:08)
[2020-05-19] MEDS: MELATONIN 5 MG TABLETS PO SCH (21:10)
[2020-05-19] MEDS: LIDOCAINE PATCH REMOVAL MC SCH (21:10)
[2020-05-20] MEDS ORDERED: PT OWN MED DRAWER 7, Y5N ONE ×3 (03:53→15:02)
[2020-05-20] MEDS: GABAPENTIN 400 MG CAPSULE PO SCH (07:03)
[2020-05-20] MEDS: CYCLOBENZAPRINE HCL 10 MG TABLET (FP) PO PRN ×2 (07:03→18:32)
[2020-05-20] MEDS: IBUPROFEN 600 MG TABLET (FP) PO PRN ×2 (07:04→18:32)
[2020-05-20] MEDS: busPIRone HCL 5 MG TABLET PO SCH (07:04)
[2020-05-20] MEDS: HYDROCHLOROTHIAZIDE 12.5 MG CAPSULE (FP) PO SCH (10:00)
[2020-05-20] MEDS: PRENATAL VITAMINS W/ FOLIC ACID TABLET (FP) PO SCH (10:00)
[2020-05-20] MEDS: TOPIRAMATE 25 MG TABLET PO SCH (10:00)
[2020-05-20] MEDS: LIDOCAINE 5% TOPICAL PATCH TP SCH (10:00)
[2020-05-20] MEDS: CLINDAMYCIN PHOSPHATE 1% TOPICAL GEL 30 GM TUBE TP SCH ×2 (10:01→21:23)
[2020-05-20] MEDS: DIVALPROEX NA *ER* EXTEND REL 500 MG TABLET.SA (FP) PO SCH (10:02)
[2020-05-20] MEDS: busPIRone HCL 10 MG TABLET (FP) PO SCH ×2 (15:03→21:23)
[2020-05-20] MEDS: MINERAL OIL/PETROLAT/WATER TOPICAL CREAM 113 GM JAR TP SCH ×2 (15:03→21:24)
[2020-05-20] MEDS: MELATONIN 5 MG TABLETS PO SCH (21:22)
[2020-05-20] MEDS: THIAMINE HCL 100 MG TABLET (FP) PO SCH (21:22)
[2020-05-20] MEDS: PRAZOSIN HCL 1 MG CAPSULE PO SCH (21:22)
[2020-05-20] MEDS: traZODone HCL 50 MG TABLET (FP) PO SCH (21:23)
[2020-05-20] MEDS: LIDOCAINE PATCH REMOVAL MC SCH (21:24)
[2020-05-20] MEDS: TOPIRAMATE 100 MG TABLET PO SCH (21:25)
[2020-05-20] MEDS: risperiDONE 2 MG TABLET PO SCH (21:25)
[2020-05-21] MEDS: CYCLOBENZAPRINE HCL 10 MG TABLET (FP) PO PRN ×3 (06:16→21:10)
[2020-05-21] MEDS: busPIRone HCL 10 MG TABLET (FP) PO SCH ×3 (06:16→21:10)
[2020-05-21] MEDS: IBUPROFEN 600 MG TABLET (FP) PO PRN ×2 (06:16→13:58)
[2020-05-21] MEDS: CLINDAMYCIN PHOSPHATE 1% TOPICAL GEL 30 GM TUBE TP SCH ×2 (09:55→21:11)
[2020-05-21] MEDS: MINERAL OIL/PETROLAT/WATER TOPICAL CREAM 113 GM JAR TP SCH ×2 (09:55→21:11)
[2020-05-21] MEDS: HYDROCHLOROTHIAZIDE 12.5 MG CAPSULE (FP) PO SCH (09:55)
[2020-05-21] MEDS: PRENATAL VITAMINS W/ FOLIC ACID TABLET (FP) PO SCH (09:55)
[2020-05-21] MEDS: TOPIRAMATE 100 MG TABLET PO SCH ×2 (09:55→21:09)
[2020-05-21] MEDS: DIVALPROEX NA *ER* EXTEND REL 500 MG TABLET.SA (FP) PO SCH (09:55)
[2020-05-21] MEDS: LIDOCAINE 5% TOPICAL PATCH TP SCH (09:56)
[2020-05-21] MEDS: THIAMINE HCL 100 MG TABLET (FP) PO SCH (21:09)
[2020-05-21] MEDS: risperiDONE 2 MG TABLET PO SCH (21:09)
[2020-05-21] MEDS: MELATONIN 5 MG TABLETS PO SCH (21:09)
[2020-05-21] MEDS: traZODone HCL 50 MG TABLET (FP) PO SCH (21:10)
[2020-05-21] MEDS: PRAZOSIN HCL 1 MG CAPSULE PO SCH (21:10)
[2020-05-21] MEDS: LIDOCAINE PATCH REMOVAL MC SCH (21:11)
[2020-05-22] MEDS: busPIRone HCL 10 MG TABLET (FP) PO SCH ×3 (06:27→21:08)
[2020-05-22] MEDS: CYCLOBENZAPRINE HCL 10 MG TABLET (FP) PO PRN (06:27)
[2020-05-22] MEDS: IBUPROFEN 600 MG TABLET (FP) PO PRN ×3 (06:27→21:07)
[2020-05-22] MEDS ORDERED: PT OWN MED DRAWER 7, Y5N ONE (08:38)
[2020-05-22] MEDS: LIDOCAINE 5% TOPICAL PATCH TP SCH (09:53)
[2020-05-22] MEDS: AMMONIUM LACTATE 12% LOTION 225 GM BOTTLE TP PRN (09:53)
[2020-05-22] MEDS: CLINDAMYCIN PHOSPHATE 1% TOPICAL GEL 30 GM TUBE TP SCH ×2 (09:53→21:08)
[2020-05-22] MEDS: HYDROCHLOROTHIAZIDE 12.5 MG CAPSULE (FP) PO SCH (09:53)
[2020-05-22] MEDS: DIVALPROEX NA *ER* EXTEND REL 500 MG TABLET.SA (FP) PO SCH (09:54)
[2020-05-22] MEDS: PRENATAL VITAMINS W/ FOLIC ACID TABLET (FP) PO SCH (09:54)
[2020-05-22] MEDS: TOPIRAMATE 100 MG TABLET PO SCH ×2 (09:56→21:05)
[2020-05-22] MEDS: MINERAL OIL/PETROLAT/WATER TOPICAL CREAM 113 GM JAR TP SCH ×2 (11:34→21:06)
[2020-05-22] MEDS: PRAZOSIN HCL 1 MG CAPSULE PO SCH (21:05)
[2020-05-22] MEDS: THIAMINE HCL 100 MG TABLET (FP) PO SCH (21:05)
[2020-05-22] MEDS: MELATONIN 5 MG TABLETS PO SCH (21:05)
[2020-05-22] MEDS: risperiDONE 2 MG TABLET PO SCH (21:05)
[2020-05-22] MEDS: LIDOCAINE PATCH REMOVAL MC SCH (21:06)
[2020-05-22] MEDS: traZODone HCL 50 MG TABLET (FP) PO SCH (21:07)
[2020-05-23] MEDS ORDERED: PT OWN MED DRAWER 7, Y5N ONE ×4 (03:23→13:21)
[2020-05-23] MEDS: CYCLOBENZAPRINE HCL 10 MG TABLET (FP) PO PRN ×3 (06:24→21:21)
[2020-05-23] MEDS: busPIRone HCL 10 MG TABLET (FP) PO SCH ×3 (06:24→21:21)
[2020-05-23] MEDS: IBUPROFEN 600 MG TABLET (FP) PO PRN ×3 (06:24→21:23)
[2020-05-23 06:46] VITALS: TEMP 97.1
[2020-05-23] MEDS: LIDOCAINE 5% TOPICAL PATCH TP SCH (09:58)
[2020-05-23] MEDS: PRENATAL VITAMINS W/ FOLIC ACID TABLET (FP) PO SCH (09:59)
[2020-05-23] MEDS: TOPIRAMATE 100 MG TABLET PO SCH ×2 (09:59→21:21)
[2020-05-23] MEDS: DIVALPROEX NA *ER* EXTEND REL 500 MG TABLET.SA (FP) PO SCH (09:59)
[2020-05-23] MEDS: HYDROCHLOROTHIAZIDE 12.5 MG CAPSULE (FP) PO SCH (09:59)
[2020-05-23] MEDS: CLINDAMYCIN PHOSPHATE 1% TOPICAL GEL 30 GM TUBE TP SCH ×2 (10:00→21:22)
[2020-05-23] MEDS: MINERAL OIL/PETROLAT/WATER TOPICAL CREAM 113 GM JAR TP SCH ×2 (10:00→21:22)
[2020-05-23] MEDS: ACETAMINOPHEN 325 MG TABLET (FP) PO PRN ×2 (10:00→19:12)
[2020-05-23] MEDS: PRAZOSIN HCL 1 MG CAPSULE PO SCH (21:20)
[2020-05-23] MEDS: THIAMINE HCL 100 MG TABLET (FP) PO SCH (21:20)
[2020-05-23] MEDS: LIDOCAINE PATCH REMOVAL MC SCH (21:20)
[2020-05-23] MEDS: MELATONIN 5 MG TABLETS PO SCH (21:20)
[2020-05-23] MEDS: risperiDONE 2 MG TABLET PO SCH (21:21)
[2020-05-23] MEDS: traZODone HCL 50 MG TABLET (FP) PO SCH (21:21)
[2020-05-24] MEDS ORDERED: PT OWN MED DRAWER 7, Y5N ONE ×3 (03:29→19:11)
[2020-05-24] MEDS: busPIRone HCL 10 MG TABLET (FP) PO SCH ×3 (06:30→23:03)
[2020-05-24] MEDS: IBUPROFEN 600 MG TABLET (FP) PO PRN ×3 (06:31→22:50)
[2020-05-24] MEDS: CYCLOBENZAPRINE HCL 10 MG TABLET (FP) PO PRN ×3 (06:31→22:46)
[2020-05-24] MEDS: LIDOCAINE 5% TOPICAL PATCH TP SCH (09:54)
[2020-05-24] MEDS: HYDROCHLOROTHIAZIDE 12.5 MG CAPSULE (FP) PO SCH (09:54)
[2020-05-24] MEDS: PRENATAL VITAMINS W/ FOLIC ACID TABLET (FP) PO SCH (09:54)
[2020-05-24] MEDS: TOPIRAMATE 100 MG TABLET PO SCH ×2 (09:54→22:47)
[2020-05-24] MEDS: CLINDAMYCIN PHOSPHATE 1% TOPICAL GEL 30 GM TUBE TP SCH ×2 (09:55→22:47)
[2020-05-24] MEDS: AMMONIUM LACTATE 12% LOTION 225 GM BOTTLE TP PRN (09:55)
[2020-05-24] MEDS: MINERAL OIL/PETROLAT/WATER TOPICAL CREAM 113 GM JAR TP SCH ×2 (09:55→22:47)
[2020-05-24] MEDS: DIVALPROEX NA *ER* EXTEND REL 500 MG TABLET.SA (FP) PO SCH (09:55)
[2020-05-24] MEDS: ACETAMINOPHEN 325 MG TABLET (FP) PO PRN (09:56)
[2020-05-24] MEDS: PRAZOSIN HCL 1 MG CAPSULE PO SCH (22:46)
[2020-05-24] MEDS: risperiDONE 2 MG TABLET PO SCH (22:46)
[2020-05-24] MEDS: busPIRone HCL 5 MG TABLET PO SCH (22:46)
[2020-05-24] MEDS: traZODone HCL 50 MG TABLET (FP) PO SCH (22:47)
[2020-05-24] MEDS: LIDOCAINE PATCH REMOVAL MC SCH (22:47)
[2020-05-24] MEDS: THIAMINE HCL 100 MG TABLET (FP) PO SCH (22:48)
[2020-05-24] MEDS: MELATONIN 5 MG TABLETS PO SCH (22:48)
[2020-05-25] MEDS ORDERED: PT OWN MED DRAWER 7, Y5N ONE ×2 (04:03→21:17)
[2020-05-25] MEDS: busPIRone HCL 10 MG TABLET (FP) PO SCH ×3 (06:22→21:13)
[2020-05-25] MEDS: CYCLOBENZAPRINE HCL 10 MG TABLET (FP) PO PRN ×3 (06:22→21:15)
[2020-05-25] MEDS: IBUPROFEN 600 MG TABLET (FP) PO PRN ×3 (06:22→21:14)
[2020-05-25] MEDS: LIDOCAINE 5% TOPICAL PATCH TP SCH (09:35)
[2020-05-25] MEDS: HYDROCHLOROTHIAZIDE 12.5 MG CAPSULE (FP) PO SCH (09:36)
[2020-05-25] MEDS: TOPIRAMATE 100 MG TABLET PO SCH ×2 (09:36→21:17)
[2020-05-25] MEDS: PRENATAL VITAMINS W/ FOLIC ACID TABLET (FP) PO SCH (09:36)
[2020-05-25] MEDS: CLINDAMYCIN PHOSPHATE 1% TOPICAL GEL 30 GM TUBE TP SCH ×2 (09:37→21:15)
[2020-05-25] MEDS: DIVALPROEX NA *ER* EXTEND REL 500 MG TABLET.SA (FP) PO SCH (09:37)
[2020-05-25] MEDS: MINERAL OIL/PETROLAT/WATER TOPICAL CREAM 113 GM JAR TP SCH ×2 (09:37→21:15)
[2020-05-25] MEDS: THIAMINE HCL 100 MG TABLET (FP) PO SCH (21:12)
[2020-05-25] MEDS: MELATONIN 5 MG TABLETS PO SCH (21:12)
[2020-05-25] MEDS: LIDOCAINE PATCH REMOVAL MC SCH (21:12)
[2020-05-25] MEDS: traZODone HCL 50 MG TABLET (FP) PO SCH (21:15)
[2020-05-25] MEDS: PRAZOSIN HCL 1 MG CAPSULE PO SCH (21:17)
[2020-05-25] MEDS: risperiDONE 2 MG TABLET PO SCH (21:19)
[2020-05-26] MEDS ORDERED: PT OWN MED DRAWER 7, Y5N ONE ×5 (03:31→22:22)
[2020-05-26] MEDS: CYCLOBENZAPRINE HCL 10 MG TABLET (FP) PO PRN ×2 (06:41→17:39)
[2020-05-26] MEDS: busPIRone HCL 10 MG TABLET (FP) PO SCH ×3 (06:41→21:10)
[2020-05-26] MEDS: IBUPROFEN 600 MG TABLET (FP) PO PRN ×2 (06:42→14:16)
[2020-05-26] MEDS: TOPIRAMATE 100 MG TABLET PO SCH ×2 (09:19→21:09)
[2020-05-26] MEDS: HYDROCHLOROTHIAZIDE 12.5 MG CAPSULE (FP) PO SCH (09:20)
[2020-05-26] MEDS: LIDOCAINE 5% TOPICAL PATCH TP SCH (09:20)
[2020-05-26] MEDS: PRENATAL VITAMINS W/ FOLIC ACID TABLET (FP) PO SCH (09:20)
[2020-05-26] MEDS: CLINDAMYCIN PHOSPHATE 1% TOPICAL GEL 30 GM TUBE TP SCH ×2 (09:22→21:10)
[2020-05-26] MEDS: DIVALPROEX NA *ER* EXTEND REL 500 MG TABLET.SA (FP) PO SCH (09:22)
[2020-05-26] MEDS: MINERAL OIL/PETROLAT/WATER TOPICAL CREAM 113 GM JAR TP SCH ×2 (09:22→21:11)
[2020-05-26] MEDS: ACETAMINOPHEN 325 MG TABLET (FP) PO PRN (17:39)
[2020-05-26] MEDS: THIAMINE HCL 100 MG TABLET (FP) PO SCH (21:09)
[2020-05-26] MEDS: LIDOCAINE PATCH REMOVAL MC SCH (21:09)
[2020-05-26] MEDS: risperiDONE 2 MG TABLET PO SCH (21:09)
[2020-05-26] MEDS: MELATONIN 5 MG TABLETS PO SCH (21:09)
[2020-05-26] MEDS: PRAZOSIN HCL 1 MG CAPSULE PO SCH (21:09)
[2020-05-26] MEDS: traZODone HCL 50 MG TABLET (FP) PO SCH (21:10)
[2020-05-27] MEDS: busPIRone HCL 10 MG TABLET (FP) PO SCH (06:14)
[2020-05-27] MEDS: IBUPROFEN 600 MG TABLET (FP) PO PRN (06:14)
[2020-05-27] MEDS: CYCLOBENZAPRINE HCL 10 MG TABLET (FP) PO PRN (06:14)
[2020-05-27 06:39] VITALS: BP 111/78; PULSE 62
== END 2020-05-27 08:40 | disposition home or self-care (01) | DRG 772 ==
LOC: YASAS 15:01 → Y3W 19:11 → Y3E 05-13 11:02
PROVIDERS: ADMIT Allergy & Immunology; ATTEND Allergy & Immunology
PROC: HZ42ZZZ Group Counseling for Substance Abuse Treatment, Cognitive-Behavioral (ICD-10-PCS; principal; 2020-05-08)
DX: F10.20 Alcohol dependence, uncomplicated (principal); F14.20 Cocaine dependence, uncomplicated; F12.20 Cannabis dependence, uncomplicated; F17.210 Nicotine dependence, cigarettes, uncomplicated; F10.282 Alcohol dependence with alcohol-induced sleep disorder; F10.280 Alcohol dependence with alcohol-induced anxiety disorder; F10.24 Alcohol dependence with alcohol-induced mood disorder; F31.9 Bipolar disorder, unspecified; F41.1 Generalized anxiety disorder; F43.10 Post-traumatic stress disorder, unspecified; F90.9 Attention-deficit hyperactivity disorder, unspecified type; N39.0 Urinary tract infection, site not specified; R56.9 Unspecified convulsions; L70.9 Acne, unspecified; L85.3 Xerosis cutis; M54.5 Low back pain; G89.29 Other chronic pain; R60.0 Localized edema; E66.9 Obesity, unspecified; Z68.35 Body mass index [BMI] 35.0-35.9, adult; Z86.61 Personal history of infections of the central nervous system; Z91.410 Personal history of adult physical and sexual abuse; Z98.84 Bariatric surgery status; Z88.0 Allergy status to penicillin; Z91.040 Latex allergy status; Z91.018 Allergy to other foods
CPT/HCPCS: 36415; 80053; 80164; 81003; 85027; 86780; 87389; 93005; 93010; C9803; U0003

== ENCOUNTER 2020-06-13 15:29 | Inpatient (IN) | payer OTHER ==
[2020-06-13] MEDS ORDERED: hydrOXYzine PAMOATE 25 MG CAPSULE (FP) PO ONE ×2 (19:47→20:43)
[2020-06-13 21:25] VITALS: BMI 31.3
[2020-06-14] MEDS ORDERED: NICOTINE POLACRILEX 2 MG GUM BC PRN (00:48)
[2020-06-14] MEDS ORDERED: P-EPHED 60MG/TRIPROLIDI 2.5MG TABLET PO PRN (00:48)
[2020-06-14] MEDS ORDERED: MAGNESIUM HYDROX 2400MG/30ML ORAL SUSPENSION 30 ML CUP PO PRN (00:48)
[2020-06-14] MEDS ORDERED: MAGNESIUM CITRATE 300 ML BOTTLE PO PRN (00:48)
[2020-06-14] MEDS ORDERED: guaiFENesin 200 MG/10 ML 10 ML UNIT-DOSE CUPS PO PRN (00:48)
[2020-06-14] MEDS ORDERED: TUBERCULIN PPD 5 TU/0.1ML VIAL ID ONE (01:56)
[2020-06-14] MEDS: hydrOXYzine PAMOATE 25 MG CAPSULE (FP) PO PRN ×4 (02:01→22:04)
[2020-06-14] MEDS: IBUPROFEN 400 MG TABLET (FP) PO PRN ×2 (07:12→12:30)
[2020-06-14] MEDS: PRENATAL VITAMINS W/ FOLIC ACID TABLET (FP) PO SCH (09:33)
[2020-06-14] MEDS: ACETAMINOPHEN 325 MG TABLET (FP) PO PRN ×2 (09:35→17:58)
[2020-06-14 10:04] LABS: HEMATOCRIT 38.2 % (32.4-45.2); HEMOGLOBIN 12.2 GM/dL (10.7-15.3); MCH 26.1 pg (25.7-33.7); MEAN CELL VOLUME 81.8 fl (80-96); MEAN PLT VOLUME 7.1 fl (7.5-11.1); PLATELET COUNT 300 K/MM3 (134-434); RBC 4.66 M/mm3 (3.60-5.2)
[2020-06-14 10:25] LABS: POTASSIUM 3.6 mmol/L (3.5-5.1)
[2020-06-14 10:29] LABS: ALBUMIN 3.5 g/dl (3.4-5.0); BLOOD UREA NITROGEN 14.5 mg/dL (7-18)
[2020-06-14 10:33] LABS: CREATININE 0.7 mg/dL (0.55-1.3)
[2020-06-14 10:34] LABS: BILIRUBIN,TOTAL 1.2 mg/dL (0.2-1); TOT PROT 6.8 g/dl (6.4-8.2)
[2020-06-14] MEDS ORDERED: ONDANSETRON 4 MG TABLET PO PRN (12:35)
[2020-06-14] MEDS ORDERED: ONDANSETRON *ODT* 4 MG TABLET SL PRN (12:42)
[2020-06-14] MEDS: METHOCARBAMOL 500 MG TABLET PO PRN ×2 (13:48→22:04)
[2020-06-14 21:29] LABS: URINE APPEARANCE CLEAR; URINE BILIRUBIN NEGATIVE (NEGATIVE); URINE COLOR YELLOW; URINE GLUCOSE (UA) NEGATIVE (NEGATIVE); URINE KETONE NEGATIVE (NEGATIVE); URINE LEUK ESTERASE NEGATIVE (NEGATIVE); URINE NITRITE NEGATIVE (NEGATIVE); URINE PROTEIN NEGATIVE (NEGATIVE); URINE UROBILINOGEN 0.2 mg/dL (0.2-1.0)
[2020-06-14] MEDS: traZODone HCL 50 MG TABLET (FP) PO SCH (22:04)
[2020-06-14] MEDS: MELATONIN 5 MG TABLETS PO SCH (22:04)
[2020-06-14] MEDS: PRAZOSIN HCL 1 MG CAPSULE PO SCH (22:04)
[2020-06-14] MEDS: MAG HYDROX/AL HYDROX/SIMETH 30 ML UNIT-DOSE CUP PO PRN (22:04)
[2020-06-14] MEDS: THIAMINE HCL 100 MG TABLET (FP) PO SCH (22:04)
[2020-06-15] MEDS: ACETAMINOPHEN 325 MG TABLET (FP) PO PRN ×2 (06:42→17:08)
[2020-06-15] MEDS: PRENATAL VITAMINS W/ FOLIC ACID TABLET (FP) PO SCH (09:17)
[2020-06-15] MEDS: IBUPROFEN 400 MG TABLET (FP) PO PRN (09:18)
[2020-06-15] MEDS: METHOCARBAMOL 500 MG TABLET PO PRN ×2 (09:18→21:09)
[2020-06-15] MEDS: risperiDONE 0.5 MG TABLET PO SCH (09:18)
[2020-06-15] MEDS: hydrOXYzine PAMOATE 25 MG CAPSULE (FP) PO PRN (09:18)
[2020-06-15] MEDS: LOPERAMIDE HCL 2 MG CAPSULE PO PRN (10:59)
[2020-06-15] MEDS: hydrOXYzine PAMOATE 50 MG CAPSULE (FP) PO PRN ×3 (13:25→23:41)
[2020-06-15] MEDS: THIAMINE HCL 100 MG TABLET (FP) PO SCH (21:09)
[2020-06-15] MEDS: PRAZOSIN HCL 1 MG CAPSULE PO SCH (21:09)
[2020-06-15] MEDS: MELATONIN 5 MG TABLETS PO SCH (21:10)
[2020-06-15] MEDS: traZODone HCL 50 MG TABLET (FP) PO SCH (21:12)
[2020-06-16] MEDS: risperiDONE 0.5 MG TABLET PO SCH (09:34)
[2020-06-16] MEDS: PRENATAL VITAMINS W/ FOLIC ACID TABLET (FP) PO SCH (09:34)
[2020-06-16] MEDS: METHOCARBAMOL 500 MG TABLET PO PRN ×2 (09:34→17:48)
[2020-06-16] MEDS ORDERED: PT OWN MED DRAWER 7, Y5N ONE (20:29)
[2020-06-16] MEDS: THIAMINE HCL 100 MG TABLET (FP) PO SCH (21:52)
[2020-06-16] MEDS: DIVALPROEX SODIUM 500 MG TABLET E.C. PO SCH (21:52)
[2020-06-16] MEDS: traZODone HCL 50 MG TABLET (FP) PO SCH (21:52)
[2020-06-16] MEDS: hydrOXYzine PAMOATE 50 MG CAPSULE (FP) PO PRN (21:53)
[2020-06-16] MEDS: PRAZOSIN HCL 1 MG CAPSULE PO SCH (22:39)
[2020-06-16] MEDS: MELATONIN 5 MG TABLETS PO SCH (22:40)
[2020-06-17] MEDS: hydrOXYzine PAMOATE 50 MG CAPSULE (FP) PO PRN ×3 (03:45→21:09)
[2020-06-17] MEDS: ACETAMINOPHEN 325 MG TABLET (FP) PO PRN (06:26)
[2020-06-17] MEDS: PRENATAL VITAMINS W/ FOLIC ACID TABLET (FP) PO SCH (09:48)
[2020-06-17] MEDS: DIVALPROEX SODIUM 500 MG TABLET E.C. PO SCH ×2 (09:48→21:08)
[2020-06-17] MEDS: risperiDONE 0.5 MG TABLET PO SCH (09:48)
[2020-06-17] MEDS: METHOCARBAMOL 500 MG TABLET PO PRN (09:48)
[2020-06-17] MEDS: LOPERAMIDE HCL 2 MG CAPSULE PO PRN (14:29)
[2020-06-17] MEDS ORDERED: PT OWN MED DRAWER 7, Y5N ONE (21:07)
[2020-06-17] MEDS: MELATONIN 5 MG TABLETS PO SCH (21:08)
[2020-06-17] MEDS: PRAZOSIN HCL 1 MG CAPSULE PO SCH (21:08)
[2020-06-17] MEDS: traZODone HCL 50 MG TABLET (FP) PO SCH (21:08)
[2020-06-17] MEDS: MAG HYDROX/AL HYDROX/SIMETH 30 ML UNIT-DOSE CUP PO PRN (21:10)
[2020-06-17] MEDS: THIAMINE HCL 100 MG TABLET (FP) PO SCH (21:10)
[2020-06-18] MEDS: MAG HYDROX/AL HYDROX/SIMETH 30 ML UNIT-DOSE CUP PO PRN (07:01)
[2020-06-18] MEDS: ACETAMINOPHEN 325 MG TABLET (FP) PO PRN (07:01)
[2020-06-18] MEDS: PRENATAL VITAMINS W/ FOLIC ACID TABLET (FP) PO SCH (09:46)
[2020-06-18] MEDS: hydrOXYzine PAMOATE 50 MG CAPSULE (FP) PO PRN (09:47)
[2020-06-18] MEDS: DIVALPROEX SODIUM 500 MG TABLET E.C. PO SCH ×2 (09:47→21:42)
[2020-06-18] MEDS: METHOCARBAMOL 500 MG TABLET PO PRN ×2 (09:47→21:44)
[2020-06-18] MEDS: IBUPROFEN 400 MG TABLET (FP) PO PRN (09:48)
[2020-06-18] MEDS: risperiDONE 0.5 MG TABLET PO SCH (09:50)
[2020-06-18] MEDS: COLLOIDAL OATMEAL 1 BAR EACH TP PRN (12:58)
[2020-06-18] MEDS: MINERAL OIL/PETROLAT/WATER TOPICAL CREAM 113 GM JAR TP SCH (12:58)
[2020-06-18] MEDS: BENZOYL PEROXIDE 5% 60 GM GEL..GRAM. TP SCH (14:38)
[2020-06-18] MEDS ORDERED: PT OWN MED DRAWER 7, Y5N ONE (20:07)
[2020-06-18] MEDS: traZODone HCL 50 MG TABLET (FP) PO SCH (21:42)
[2020-06-18] MEDS: PRAZOSIN HCL 1 MG CAPSULE PO SCH (21:43)
[2020-06-18] MEDS: THIAMINE HCL 100 MG TABLET (FP) PO SCH (21:43)
[2020-06-18] MEDS: MELATONIN 5 MG TABLETS PO SCH (21:43)
[2020-06-19] MEDS: MAG HYDROX/AL HYDROX/SIMETH 30 ML UNIT-DOSE CUP PO PRN (06:50)
[2020-06-19] MEDS: ACETAMINOPHEN 325 MG TABLET (FP) PO PRN (06:50)
[2020-06-19] MEDS: DIVALPROEX SODIUM 500 MG TABLET E.C. PO SCH (10:29)
[2020-06-19] MEDS: hydrOXYzine PAMOATE 50 MG CAPSULE (FP) PO PRN ×2 (10:29→18:01)
[2020-06-19] MEDS: METHOCARBAMOL 500 MG TABLET PO PRN ×2 (10:29→21:53)
[2020-06-19] MEDS: IBUPROFEN 400 MG TABLET (FP) PO PRN (10:29)
[2020-06-19] MEDS: PRENATAL VITAMINS W/ FOLIC ACID TABLET (FP) PO SCH (10:29)
[2020-06-19] MEDS: MINERAL OIL/PETROLAT/WATER TOPICAL CREAM 113 GM JAR TP SCH (10:31)
[2020-06-19] MEDS: BENZOYL PEROXIDE 5% 60 GM GEL..GRAM. TP SCH (10:31)
[2020-06-19] MEDS: risperiDONE 0.5 MG TABLET PO SCH (10:31)
[2020-06-19] MEDS ORDERED: PT OWN MED DRAWER 7, Y5N ONE ×2 (20:14→21:53)
[2020-06-19] MEDS: THIAMINE HCL 100 MG TABLET (FP) PO SCH (21:50)
[2020-06-19] MEDS: traZODone HCL 100 MG TABLET (FP) PO SCH (21:50)
[2020-06-19] MEDS: MELATONIN 5 MG TABLETS PO SCH (21:50)
[2020-06-19] MEDS: PRAZOSIN HCL 1 MG CAPSULE PO SCH (21:51)
[2020-06-20] MEDS: TOPIRAMATE 25 MG TABLET PO SCH ×3 (00:02→21:29)
[2020-06-20] MEDS: ACETAMINOPHEN 325 MG TABLET (FP) PO PRN (07:29)
[2020-06-20] MEDS ORDERED: risperiDONE 1 MG TABLET PO SCH (10:00)
[2020-06-20] MEDS: PRENATAL VITAMINS W/ FOLIC ACID TABLET (FP) PO SCH (10:37)
[2020-06-20] MEDS: MINERAL OIL/PETROLAT/WATER TOPICAL CREAM 113 GM JAR TP SCH (10:38)
[2020-06-20] MEDS: BENZOYL PEROXIDE 5% 60 GM GEL..GRAM. TP SCH (10:39)
[2020-06-20] MEDS: METHOCARBAMOL 500 MG TABLET PO PRN ×2 (10:40→21:29)
[2020-06-20] MEDS: hydrOXYzine PAMOATE 50 MG CAPSULE (FP) PO PRN ×2 (10:40→17:58)
[2020-06-20] MEDS: IBUPROFEN 400 MG TABLET (FP) PO PRN ×2 (10:40→21:30)
[2020-06-20] MEDS: MELATONIN 5 MG TABLETS PO SCH (21:29)
[2020-06-20] MEDS: PRAZOSIN HCL 1 MG CAPSULE PO SCH (21:29)
[2020-06-20] MEDS: traZODone HCL 100 MG TABLET (FP) PO SCH (21:29)
[2020-06-20] MEDS: THIAMINE HCL 100 MG TABLET (FP) PO SCH (21:32)
[2020-06-21] MEDS: hydrOXYzine PAMOATE 50 MG CAPSULE (FP) PO PRN ×2 (06:34→21:37)
[2020-06-21] MEDS: ACETAMINOPHEN 325 MG TABLET (FP) PO PRN (06:34)
[2020-06-21] MEDS ORDERED: PT OWN MED DRAWER 7, Y5N ONE ×2 (08:57→20:32)
[2020-06-21] MEDS: risperiDONE 2 MG TABLET PO SCH (10:05)
[2020-06-21] MEDS: PRENATAL VITAMINS W/ FOLIC ACID TABLET (FP) PO SCH (10:05)
[2020-06-21] MEDS: BENZOYL PEROXIDE 5% 60 GM GEL..GRAM. TP SCH (10:05)
[2020-06-21] MEDS: TOPIRAMATE 25 MG TABLET PO SCH ×2 (10:06→21:34)
[2020-06-21] MEDS: MINERAL OIL/PETROLAT/WATER TOPICAL CREAM 113 GM JAR TP SCH (10:06)
[2020-06-21] MEDS: LOPERAMIDE HCL 2 MG CAPSULE PO PRN (10:08)
[2020-06-21] MEDS: IBUPROFEN 400 MG TABLET (FP) PO PRN ×2 (10:08→21:35)
[2020-06-21] MEDS: METHOCARBAMOL 500 MG TABLET PO PRN ×2 (10:08→21:37)
[2020-06-21] MEDS: THIAMINE HCL 100 MG TABLET (FP) PO SCH (21:33)
[2020-06-21] MEDS: MELATONIN 5 MG TABLETS PO SCH (21:33)
[2020-06-21] MEDS: traZODone HCL 100 MG TABLET (FP) PO SCH (21:34)
[2020-06-21] MEDS: PRAZOSIN HCL 1 MG CAPSULE PO SCH (21:36)
[2020-06-22] MEDS: ACETAMINOPHEN 325 MG TABLET (FP) PO PRN (06:54)
[2020-06-22] MEDS ORDERED: PT OWN MED DRAWER 7, Y5N ONE ×2 (09:02→20:51)
[2020-06-22] MEDS: PRENATAL VITAMINS W/ FOLIC ACID TABLET (FP) PO SCH (10:04)
[2020-06-22] MEDS: risperiDONE 2 MG TABLET PO SCH (10:05)
[2020-06-22] MEDS: MINERAL OIL/PETROLAT/WATER TOPICAL CREAM 113 GM JAR TP SCH (10:05)
[2020-06-22] MEDS: TOPIRAMATE 25 MG TABLET PO SCH ×2 (10:05→21:42)
[2020-06-22] MEDS: BENZOYL PEROXIDE 5% 60 GM GEL..GRAM. TP SCH (10:06)
[2020-06-22] MEDS: METHOCARBAMOL 500 MG TABLET PO PRN ×2 (10:07→21:43)
[2020-06-22] MEDS: IBUPROFEN 400 MG TABLET (FP) PO PRN ×2 (10:07→21:43)
[2020-06-22] MEDS: hydrOXYzine PAMOATE 50 MG CAPSULE (FP) PO PRN (13:24)
[2020-06-22] MEDS: THIAMINE HCL 100 MG TABLET (FP) PO SCH (21:42)
[2020-06-22] MEDS: traZODone HCL 100 MG TABLET (FP) PO SCH (21:42)
[2020-06-22] MEDS: PRAZOSIN HCL 1 MG CAPSULE PO SCH (21:42)
[2020-06-22] MEDS: MELATONIN 5 MG TABLETS PO SCH (21:43)
[2020-06-23] MEDS: hydrOXYzine PAMOATE 50 MG CAPSULE (FP) PO PRN ×2 (06:42→17:34)
[2020-06-23] MEDS: ACETAMINOPHEN 325 MG TABLET (FP) PO PRN (06:42)
[2020-06-23] MEDS: COLLOIDAL OATMEAL 1 BAR EACH TP PRN (06:42)
[2020-06-23] MEDS ORDERED: PT OWN MED DRAWER 7, Y5N ONE ×2 (08:20→21:09)
[2020-06-23] MEDS: PRENATAL VITAMINS W/ FOLIC ACID TABLET (FP) PO SCH (10:00)
[2020-06-23] MEDS: TOPIRAMATE 25 MG TABLET PO SCH ×2 (10:01→21:09)
[2020-06-23] MEDS: risperiDONE 2 MG TABLET PO SCH (10:01)
[2020-06-23] MEDS: MINERAL OIL/PETROLAT/WATER TOPICAL CREAM 113 GM JAR TP SCH (10:02)
[2020-06-23] MEDS: BENZOYL PEROXIDE 5% 60 GM GEL..GRAM. TP SCH (10:02)
[2020-06-23] MEDS: IBUPROFEN 400 MG TABLET (FP) PO PRN ×2 (10:03→21:08)
[2020-06-23] MEDS: METHOCARBAMOL 500 MG TABLET PO PRN ×2 (10:03→21:08)
[2020-06-23] MEDS: THIAMINE HCL 100 MG TABLET (FP) PO SCH (21:06)
[2020-06-23] MEDS: traZODone HCL 100 MG TABLET (FP) PO SCH (21:06)
[2020-06-23] MEDS: MELATONIN 5 MG TABLETS PO SCH (21:06)
[2020-06-23] MEDS: PRAZOSIN HCL 1 MG CAPSULE PO SCH (21:10)
[2020-06-24] MEDS: hydrOXYzine PAMOATE 50 MG CAPSULE (FP) PO PRN ×2 (05:07→17:34)
[2020-06-24] MEDS: ACETAMINOPHEN 325 MG TABLET (FP) PO PRN (06:43)
[2020-06-24] MEDS: MINERAL OIL/PETROLAT/WATER TOPICAL CREAM 113 GM JAR TP SCH (09:59)
[2020-06-24] MEDS: PRENATAL VITAMINS W/ FOLIC ACID TABLET (FP) PO SCH (09:59)
[2020-06-24] MEDS: risperiDONE 2 MG TABLET PO SCH (09:59)
[2020-06-24] MEDS: TOPIRAMATE 25 MG TABLET PO SCH (09:59)
[2020-06-24] MEDS: IBUPROFEN 400 MG TABLET (FP) PO PRN (10:00)
[2020-06-24] MEDS: METHOCARBAMOL 500 MG TABLET PO PRN ×2 (10:01→21:17)
[2020-06-24] MEDS: SIMETHICONE 80 MG TAB.CHEW (FP) PO PRN ×2 (10:05→21:16)
[2020-06-24] MEDS ORDERED: PT OWN MED DRAWER 7, Y5N ONE (20:29)
[2020-06-24] MEDS: TOPIRAMATE 100 MG TABLET PO SCH (21:15)
[2020-06-24] MEDS: busPIRone HCL 5 MG TABLET PO SCH (21:16)
[2020-06-24] MEDS: traZODone HCL 50 MG TABLET (FP) PO SCH (21:16)
[2020-06-24] MEDS: MELATONIN 5 MG TABLETS PO SCH (21:17)
[2020-06-24] MEDS: PRAZOSIN HCL 1 MG CAPSULE PO SCH (22:31)
[2020-06-24] MEDS: THIAMINE HCL 100 MG TABLET (FP) PO SCH (22:34)
[2020-06-25] MEDS: METHOCARBAMOL 500 MG TABLET PO PRN ×2 (06:33→21:57)
[2020-06-25] MEDS: ACETAMINOPHEN 325 MG TABLET (FP) PO PRN (06:33)
[2020-06-25] MEDS: SIMETHICONE 80 MG TAB.CHEW (FP) PO PRN (08:51)
[2020-06-25] MEDS: PRENATAL VITAMINS W/ FOLIC ACID TABLET (FP) PO SCH (09:44)
[2020-06-25] MEDS: risperiDONE 1 MG TABLET PO SCH (09:45)
[2020-06-25] MEDS: busPIRone HCL 5 MG TABLET PO SCH ×2 (09:45→21:58)
[2020-06-25] MEDS: TOPIRAMATE 25 MG TABLET PO SCH (09:45)
[2020-06-25] MEDS: MINERAL OIL/PETROLAT/WATER TOPICAL CREAM 113 GM JAR TP SCH (09:46)
[2020-06-25] MEDS: IBUPROFEN 400 MG TABLET (FP) PO PRN (09:48)
[2020-06-25] MEDS: hydrOXYzine PAMOATE 50 MG CAPSULE (FP) PO PRN (17:53)
[2020-06-25] MEDS: THIAMINE HCL 100 MG TABLET (FP) PO SCH (21:58)
[2020-06-25] MEDS: risperiDONE 2 MG TABLET PO SCH (21:58)
[2020-06-25] MEDS: MELATONIN 5 MG TABLETS PO SCH (21:58)
[2020-06-25] MEDS: PRAZOSIN HCL 1 MG CAPSULE PO SCH (21:58)
[2020-06-25] MEDS: TOPIRAMATE 100 MG TABLET PO SCH (21:59)
[2020-06-25] MEDS: traZODone HCL 50 MG TABLET (FP) PO SCH (23:26)
[2020-06-26] MEDS: METHOCARBAMOL 500 MG TABLET PO PRN ×2 (06:26→21:17)
[2020-06-26] MEDS: IBUPROFEN 400 MG TABLET (FP) PO PRN ×2 (06:26→21:17)
[2020-06-26] MEDS: hydrOXYzine PAMOATE 50 MG CAPSULE (FP) PO PRN (09:05)
[2020-06-26] MEDS: risperiDONE 1 MG TABLET PO SCH (09:05)
[2020-06-26] MEDS: PRENATAL VITAMINS W/ FOLIC ACID TABLET (FP) PO SCH (09:05)
[2020-06-26] MEDS: busPIRone HCL 5 MG TABLET PO SCH ×2 (09:06→21:16)
[2020-06-26] MEDS: SIMETHICONE 80 MG TAB.CHEW (FP) PO PRN (10:08)
[2020-06-26] MEDS: MINERAL OIL/PETROLAT/WATER TOPICAL CREAM 113 GM JAR TP SCH (10:08)
[2020-06-26] MEDS: ACETAMINOPHEN 325 MG TABLET (FP) PO PRN (10:11)
[2020-06-26] MEDS: TOPIRAMATE 25 MG TABLET PO SCH (10:13)
[2020-06-26] MEDS ORDERED: PT OWN MED DRAWER 7, Y5N ONE (20:30)
[2020-06-26] MEDS: PRAZOSIN HCL 1 MG CAPSULE PO SCH (21:16)
[2020-06-26] MEDS: risperiDONE 2 MG TABLET PO SCH (21:16)
[2020-06-26] MEDS: traZODone HCL 50 MG TABLET (FP) PO SCH (21:16)
[2020-06-26] MEDS: THIAMINE HCL 100 MG TABLET (FP) PO SCH (21:17)
[2020-06-26] MEDS: MELATONIN 5 MG TABLETS PO SCH (21:18)
[2020-06-26] MEDS: TOPIRAMATE 100 MG TABLET PO SCH (21:22)
[2020-06-27] MEDS: busPIRone HCL 5 MG TABLET PO SCH ×3 (06:07→21:33)
[2020-06-27] MEDS: IBUPROFEN 400 MG TABLET (FP) PO PRN ×2 (06:09→21:35)
[2020-06-27] MEDS: METHOCARBAMOL 500 MG TABLET PO PRN ×2 (06:09→21:33)
[2020-06-27] MEDS ORDERED: PT OWN MED DRAWER 7, Y5N ONE ×3 (08:58→20:18)
[2020-06-27] MEDS: risperiDONE 1 MG TABLET PO SCH (09:50)
[2020-06-27] MEDS: TOPIRAMATE 25 MG TABLET PO SCH (09:50)
[2020-06-27] MEDS: PRENATAL VITAMINS W/ FOLIC ACID TABLET (FP) PO SCH (09:50)
[2020-06-27] MEDS: MINERAL OIL/PETROLAT/WATER TOPICAL CREAM 113 GM JAR TP SCH (09:53)
[2020-06-27] MEDS: ACETAMINOPHEN 325 MG TABLET (FP) PO PRN (09:53)
[2020-06-27] MEDS: hydrOXYzine PAMOATE 50 MG CAPSULE (FP) PO PRN (17:40)
[2020-06-27] MEDS: THIAMINE HCL 100 MG TABLET (FP) PO SCH (21:33)
[2020-06-27] MEDS: traZODone HCL 50 MG TABLET (FP) PO SCH (21:33)
[2020-06-27] MEDS: risperiDONE 2 MG TABLET PO SCH (21:33)
[2020-06-27] MEDS: TOPIRAMATE 100 MG TABLET PO SCH (21:34)
[2020-06-27] MEDS: PRAZOSIN HCL 1 MG CAPSULE PO SCH (21:34)
[2020-06-27] MEDS: MELATONIN 5 MG TABLETS PO SCH (21:34)
[2020-06-28] MEDS: METHOCARBAMOL 500 MG TABLET PO PRN ×2 (06:29→21:27)
[2020-06-28] MEDS: busPIRone HCL 5 MG TABLET PO SCH ×3 (06:29→21:25)
[2020-06-28] MEDS: IBUPROFEN 400 MG TABLET (FP) PO PRN ×3 (06:29→21:28)
[2020-06-28] MEDS ORDERED: MASKS NR ONE (09:56)
[2020-06-28] MEDS: MINERAL OIL/PETROLAT/WATER TOPICAL CREAM 113 GM JAR TP SCH (10:30)
[2020-06-28] MEDS: risperiDONE 1 MG TABLET PO SCH (10:31)
[2020-06-28] MEDS: hydrOXYzine PAMOATE 50 MG CAPSULE (FP) PO PRN ×2 (10:31→14:00)
[2020-06-28] MEDS: PRENATAL VITAMINS W/ FOLIC ACID TABLET (FP) PO SCH (10:31)
[2020-06-28] MEDS: TOPIRAMATE 25 MG TABLET PO SCH (10:31)
[2020-06-28 11:41] LABS: CALCIUM 9.1 mg/dL (8.5-10.1)
[2020-06-28 11:42] LABS: BLOOD UREA NITROGEN 15.9 mg/dL (7-18)
[2020-06-28 11:45] LABS: CREATININE 0.7 mg/dL (0.55-1.3)
[2020-06-28] MEDS: ACETAMINOPHEN 325 MG TABLET (FP) PO PRN (14:02)
[2020-06-28] MEDS: risperiDONE 2 MG TABLET PO SCH (21:25)
[2020-06-28] MEDS: THIAMINE HCL 100 MG TABLET (FP) PO SCH (21:25)
[2020-06-28] MEDS: MELATONIN 5 MG TABLETS PO SCH (21:25)
[2020-06-28] MEDS: traZODone HCL 50 MG TABLET (FP) PO SCH (21:25)
[2020-06-28] MEDS: TOPIRAMATE 100 MG TABLET PO SCH (21:25)
[2020-06-28] MEDS: PRAZOSIN HCL 1 MG CAPSULE PO SCH (21:27)
[2020-06-29] MEDS: busPIRone HCL 5 MG TABLET PO SCH ×3 (06:07→21:20)
[2020-06-29] MEDS: METHOCARBAMOL 500 MG TABLET PO PRN ×2 (06:08→21:21)
[2020-06-29] MEDS: IBUPROFEN 400 MG TABLET (FP) PO PRN ×3 (06:08→21:21)
[2020-06-29] MEDS: hydrOXYzine PAMOATE 50 MG CAPSULE (FP) PO PRN ×2 (07:57→13:29)
[2020-06-29] MEDS: TOPIRAMATE 25 MG TABLET PO SCH (10:14)
[2020-06-29] MEDS: PRENATAL VITAMINS W/ FOLIC ACID TABLET (FP) PO SCH (10:14)
[2020-06-29] MEDS: risperiDONE 1 MG TABLET PO SCH (10:15)
[2020-06-29] MEDS: MINERAL OIL/PETROLAT/WATER TOPICAL CREAM 113 GM JAR TP SCH (10:16)
[2020-06-29] MEDS: TOPIRAMATE 100 MG TABLET PO SCH (21:19)
[2020-06-29] MEDS: traZODone HCL 50 MG TABLET (FP) PO SCH (21:19)
[2020-06-29] MEDS: THIAMINE HCL 100 MG TABLET (FP) PO SCH (21:19)
[2020-06-29] MEDS: risperiDONE 2 MG TABLET PO SCH (21:19)
[2020-06-29] MEDS: MELATONIN 5 MG TABLETS PO SCH (21:20)
[2020-06-29] MEDS: PRAZOSIN HCL 1 MG CAPSULE PO SCH (21:20)
[2020-06-30] MEDS: METHOCARBAMOL 500 MG TABLET PO PRN (06:22)
[2020-06-30] MEDS: IBUPROFEN 400 MG TABLET (FP) PO PRN (06:22)
[2020-06-30] MEDS: busPIRone HCL 5 MG TABLET PO SCH (06:22)
[2020-06-30] MEDS: COLLOIDAL OATMEAL 1 BAR EACH TP PRN (06:24)
[2020-06-30] MEDS: hydrOXYzine PAMOATE 50 MG CAPSULE (FP) PO PRN (06:38)
[2020-06-30] MEDS ORDERED: PT OWN MED DRAWER 7, Y5N ONE ×2 (08:15→10:35)
[2020-06-30 08:41] VITALS: TEMP 98.7
[2020-06-30 08:42] VITALS: BP 108/57; PULSE 86
[2020-06-30] MEDS: PRENATAL VITAMINS W/ FOLIC ACID TABLET (FP) PO SCH (10:12)
[2020-06-30] MEDS: risperiDONE 1 MG TABLET PO SCH (10:12)
[2020-06-30] MEDS: TOPIRAMATE 25 MG TABLET PO SCH (10:13)
[2020-06-30] MEDS: MINERAL OIL/PETROLAT/WATER TOPICAL CREAM 113 GM JAR TP SCH (10:14)
[2020-06-30] MEDS: ACETAMINOPHEN 325 MG TABLET (FP) PO PRN (10:15)
== END 2020-06-30 10:47 | disposition home or self-care (01) | DRG 772 ==
LOC: YASAS 15:29 → Y5N 06-14 01:26
PROVIDERS: ADMIT Allergy & Immunology; ATTEND Allergy & Immunology
PROC: HZ42ZZZ Group Counseling for Substance Abuse Treatment, Cognitive-Behavioral (ICD-10-PCS; principal; 2020-06-14)
DX: F10.20 Alcohol dependence, uncomplicated (principal); F12.20 Cannabis dependence, uncomplicated; F17.210 Nicotine dependence, cigarettes, uncomplicated; F31.9 Bipolar disorder, unspecified; F33.9 Major depressive disorder, recurrent, unspecified; F90.9 Attention-deficit hyperactivity disorder, unspecified type; F43.10 Post-traumatic stress disorder, unspecified; F41.9 Anxiety disorder, unspecified; L70.9 Acne, unspecified; M54.5 Low back pain; G89.29 Other chronic pain; E66.9 Obesity, unspecified; Z68.31 Body mass index [BMI] 31.0-31.9, adult; Z91.410 Personal history of adult physical and sexual abuse; Z88.0 Allergy status to penicillin; Z91.018 Allergy to other foods; Z91.040 Latex allergy status
CPT/HCPCS: 36415; 80048; 80053; 80164; 81003; 81025; 85027; 86780; C9803; J2794; Q0162; U0003

== ENCOUNTER 2020-09-19 14:49 | Inpatient (IN) | payer OTHER ==
[2020-09-19 15:44] VITALS: BMI 37.7
[2020-09-19] MEDS ORDERED: MAG HYDROX/AL HYDROX/SIMETH 30 ML UNIT-DOSE CUP PO PRN (17:10)
[2020-09-19] MEDS ORDERED: ONDANSETRON *ODT* 4 MG TABLET SL PRN (17:10)
[2020-09-19] MEDS ORDERED: MAGNESIUM CITRATE 300 ML BOTTLE PO PRN (17:10)
[2020-09-19] MEDS ORDERED: MENTHOL/PHENOL 1 EACH UD MM PRN (17:10)
[2020-09-19] MEDS ORDERED: BISMUTH SUBSALICYLATE 524 MG/30 ML PO PRN (17:10)
[2020-09-19] MEDS ORDERED: MAGNESIUM HYDROX 2400MG/30ML ORAL SUSPENSION 30 ML CUP PO PRN (17:10)
[2020-09-19] MEDS ORDERED: NICOTINE POLACRILEX 2 MG GUM BUC PRN (17:10)
[2020-09-19] MEDS ORDERED: ACETAMINOPHEN 325 MG TABLET (FP) PO PRN (17:10)
[2020-09-19] MEDS: hydrOXYzine PAMOATE 25 MG CAPSULE (FP) PO PRN (19:41)
[2020-09-19] MEDS: LORazepam 1 MG TABLET PO PRN (19:41)
[2020-09-19] MEDS: LORazepam 2 MG TABLET PO SCH (22:12)
[2020-09-19] MEDS: MELATONIN 5 MG TABLETS PO SCH (22:12)
[2020-09-19] MEDS: THIAMINE HCL 100 MG TABLET (FP) PO SCH (22:12)
[2020-09-19] MEDS: IBUPROFEN 400 MG TABLET (FP) PO PRN (22:16)
[2020-09-20] MEDS: LORazepam 2 MG TABLET PO SCH ×4 (05:47→22:17)
[2020-09-20] MEDS: hydrOXYzine PAMOATE 25 MG CAPSULE (FP) PO PRN ×3 (05:49→17:33)
[2020-09-20] MEDS: METHOCARBAMOL 500 MG TABLET PO PRN ×2 (05:59→18:43)
[2020-09-20] MEDS: IBUPROFEN 400 MG TABLET (FP) PO PRN ×2 (06:00→16:36)
[2020-09-20] MEDS: LORazepam 1 MG TABLET PO PRN ×2 (08:59→14:17)
[2020-09-20] MEDS: PRENATAL VITAMINS W/ FOLIC ACID TABLET (FP) PO SCH (10:11)
[2020-09-20] MEDS: ACETAMINOPHEN 325 MG TABLET (FP) PO PRN (10:13)
[2020-09-20 10:53] LABS: CALCIUM 8.6 mg/dL (8.5-10.1)
[2020-09-20 10:54] LABS: ALBUMIN 3.1 g/dl (3.4-5.0); BLOOD UREA NITROGEN 16.2 mg/dL (7-18)
[2020-09-20 10:57] LABS: CREATININE 0.7 mg/dL (0.55-1.3)
[2020-09-20 10:59] LABS: BILIRUBIN,TOTAL 0.9 mg/dL (0.2-1); TOT PROT 5.8 g/dl (6.4-8.2)
[2020-09-20 11:06] LABS: HEMATOCRIT 34.2 % (32.4-45.2); HEMOGLOBIN 11.1 GM/dL (10.7-15.3); MCH 26.2 pg (25.7-33.7); MCHC 32.5 g/dl (32.0-36.0); MEAN CELL VOLUME 80.4 fl (80-96); MEAN PLT VOLUME 7.3 fl (7.5-11.1); PLATELET COUNT 259 10^3/uL (134-434); RBC 4.26 M/mm3 (3.60-5.2); WHITE BLOOD COUNT 6.4 K/mm3 (4.0-10.0)
[2020-09-20 13:29] LABS: HIV INTERPRETATION NEGATIVE (NEGATIVE)
[2020-09-20] MEDS: MELATONIN 5 MG TABLETS PO SCH (21:46)
[2020-09-20] MEDS: THIAMINE HCL 100 MG TABLET (FP) PO SCH (21:46)
[2020-09-20] MEDS: PRAZOSIN HCL 1 MG CAPSULE PO SCH (22:51)
[2020-09-20] MEDS: TOPIRAMATE 25 MG TABLET PO SCH (22:51)
[2020-09-21] MEDS: IBUPROFEN 400 MG TABLET (FP) PO PRN ×3 (03:24→17:31)
[2020-09-21] MEDS: METHOCARBAMOL 500 MG TABLET PO PRN ×3 (03:24→22:11)
[2020-09-21] MEDS: LORazepam 1 MG TABLET PO PRN ×4 (03:25→19:38)
[2020-09-21] MEDS: LORazepam 1 MG TABLET PO SCH ×4 (05:35→22:10)
[2020-09-21] MEDS: hydrOXYzine PAMOATE 25 MG CAPSULE (FP) PO PRN ×5 (05:38→22:12)
[2020-09-21] MEDS: ACETAMINOPHEN 325 MG TABLET (FP) PO PRN ×3 (06:00→22:12)
[2020-09-21] MEDS: PRENATAL VITAMINS W/ FOLIC ACID TABLET (FP) PO SCH (10:08)
[2020-09-21] MEDS: TOPIRAMATE 25 MG TABLET PO SCH (10:09)
[2020-09-21] MEDS ORDERED: MASKS NR ONE (17:10)
[2020-09-21] MEDS: MELATONIN 5 MG TABLETS PO SCH (22:07)
[2020-09-21] MEDS: PRAZOSIN HCL 1 MG CAPSULE PO SCH (22:08)
[2020-09-21] MEDS: THIAMINE HCL 100 MG TABLET (FP) PO SCH (22:10)
[2020-09-21] MEDS: TOPIRAMATE 100 MG TABLET PO SCH (22:39)
[2020-09-22] MEDS ORDERED: LORazepam 0.5 MG TABLET PO PRN
[2020-09-22] MEDS: hydrOXYzine PAMOATE 25 MG CAPSULE (FP) PO PRN ×3 (03:08→09:26)
[2020-09-22] MEDS: IBUPROFEN 400 MG TABLET (FP) PO PRN ×2 (03:08→09:26)
[2020-09-22] MEDS: LORazepam 0.5 MG TABLET PO SCH ×2 (05:46→10:08)
[2020-09-22] MEDS: ACETAMINOPHEN 325 MG TABLET (FP) PO PRN (05:48)
[2020-09-22 09:05] VITALS: BP 139/93; PULSE 94; TEMP 97.1
[2020-09-22] MEDS: PRENATAL VITAMINS W/ FOLIC ACID TABLET (FP) PO SCH (09:23)
[2020-09-22] MEDS: TOPIRAMATE 100 MG TABLET PO SCH (09:23)
[2020-09-23] MEDS ORDERED: LORazepam 0.5 MG TABLET PO ONE (05:00)
== END 2020-09-22 09:37 | disposition home or self-care (01) | DRG 775 ==
LOC: YASAS 14:49 → Y3N 18:27
PROVIDERS: ADMIT Allergy & Immunology; ATTEND Allergy & Immunology
PROC: HZ2ZZZZ Detoxification Services for Substance Abuse Treatment (ICD-10-PCS; principal; 2020-09-19)
DX: F10.230 Alcohol dependence with withdrawal, uncomplicated (principal); F12.20 Cannabis dependence, uncomplicated; F41.1 Generalized anxiety disorder; F31.9 Bipolar disorder, unspecified; F90.9 Attention-deficit hyperactivity disorder, unspecified type; M54.5 Low back pain; G89.29 Other chronic pain; G47.00 Insomnia, unspecified; E66.9 Obesity, unspecified; Z68.37 Body mass index [BMI] 37.0-37.9, adult; Z86.61 Personal history of infections of the central nervous system; Z86.59 Personal history of other mental and behavioral disorders; Z88.0 Allergy status to penicillin; Z91.040 Latex allergy status; Z91.018 Allergy to other foods; Z98.84 Bariatric surgery status
CPT/HCPCS: 36415; 80053; 81025; 85027; 86780; 87389; C9803; U0003; U0005

== ENCOUNTER 2022-04-14 12:54 | Inpatient (IN) | payer OTHER ==
[2022-04-14 13:34] VITALS: BMI 26.6
[2022-04-14] MEDS ORDERED: MAG HYDROX/AL HYDROX/SIMETH 30 ML UNIT-DOSE CUP PO PRN (15:22)
[2022-04-14] MEDS ORDERED: POLYETHYLENE GLYCOL (HEALTHYLAX) 3350 17 GM PACKET PO PRN (15:22)
[2022-04-14] MEDS ORDERED: IBUPROFEN 400 MG TABLET (FP) PO PRN (15:22)
[2022-04-14] MEDS ORDERED: BENZOCAINE/MENTHOL (CHLORASEPTIC ) LOZENGE MM PRN (15:22)
[2022-04-14] MEDS ORDERED: DICYCLOMINE HCL 10 MG CAPSULE PO PRN (15:22)
[2022-04-14] MEDS ORDERED: MAGNESIUM HYDROX 2400MG/30ML ORAL SUSPENSION 30 ML CUP PO PRN (15:22)
[2022-04-14] MEDS ORDERED: ONDANSETRON *ODT* 4 MG TABLET SL PRN (15:22)
[2022-04-14] MEDS ORDERED: BISMUTH SUBSALICYLATE 262 MG/15 ML BTL PO PRN (15:22)
[2022-04-14] MEDS ORDERED: IBUPROFEN 600 MG TABLET (FP) PO PRN (15:22)
[2022-04-14] MEDS ORDERED: LOPERAMIDE HCL 2 MG CAPSULE PO PRN (15:22)
[2022-04-14] MEDS ORDERED: NALOXONE HCL (KLOXXADO) 8 MG SPRAY NS PRN (15:22)
[2022-04-14] MEDS ORDERED: ACETAMINOPHEN 325 MG TABLET (FP) PO PRN ×2 (15:22)
[2022-04-14] MEDS ORDERED: diazePAM 5 MG TABLET PO ONE (15:26)
[2022-04-14] MEDS ORDERED: diazePAM 5 MG TABLET ONE (16:37)
[2022-04-14] MEDS: METHOCARBAMOL 500 MG TABLET PO PRN (17:55)
[2022-04-14] MEDS: diazePAM 5 MG TABLET PO SCH ×2 (18:26→23:03)
[2022-04-14] MEDS: diazePAM 5 MG TABLET PO PRN (20:29)
[2022-04-14] MEDS: THIAMINE HCL 100 MG TABLET (FP) PO SCH (22:59)
[2022-04-14] MEDS: MELATONIN 5 MG TABLETS PO SCH (22:59)
[2022-04-15] MEDS: METHOCARBAMOL 500 MG TABLET PO PRN ×4 (02:55→23:17)
[2022-04-15] MEDS: diazePAM 5 MG TABLET PO SCH ×4 (05:51→22:35)
[2022-04-15 12:15] LABS: HEMATOCRIT 39.2 % (32.4-45.2); HEMOGLOBIN 12.4 GM/dL (10.7-15.3); MCH 25.8 pg (25.7-33.7); MCHC 31.6 g/dl (32.0-36.0); MEAN CELL VOLUME 81.7 fl (80-96); MEAN PLT VOLUME 7.5 fl (7.5-11.1); PLATELET COUNT 179 10^3/uL (134-434); RDW 18.6 % (11.6-15.6); WHITE BLOOD COUNT 5.2 K/mm3 (4.0-10.0)
[2022-04-15 13:10] LABS: CALCIUM 8.9 mg/dL (8.5-10.1)
[2022-04-15 13:11] LABS: BLOOD UREA NITROGEN 9.1 mg/dL (7-18)
[2022-04-15 13:14] LABS: CREATININE 0.7 mg/dL (0.55-1.3)
[2022-04-15 13:16] LABS: BILIRUBIN,TOTAL 1.2 mg/dL (0.2-1); TOT PROT 6.3 g/dl (6.4-8.2)
[2022-04-15] MEDS: diazePAM 5 MG TABLET PO PRN ×2 (14:18→19:10)
[2022-04-15] MEDS ORDERED: traZODone HCL 50 MG TABLET (FP) PO ONE (22:00)
[2022-04-15] MEDS: THIAMINE HCL 100 MG TABLET (FP) PO SCH (22:34)
[2022-04-15] MEDS: MELATONIN 5 MG TABLETS PO SCH (22:34)
[2022-04-16] MEDS: diazePAM 5 MG TABLET PO SCH ×3 (05:20→22:34)
[2022-04-16] MEDS: METHOCARBAMOL 500 MG TABLET PO PRN ×2 (05:21→10:45)
[2022-04-16] MEDS: diazePAM 5 MG TABLET PO PRN ×2 (08:51→17:26)
[2022-04-16] MEDS: TOPIRAMATE 100 MG TABLET PO SCH ×2 (10:45→22:35)
[2022-04-16] MEDS: traZODone HCL 100 MG TABLET (FP) PO SCH (22:34)
[2022-04-16] MEDS: THIAMINE HCL 100 MG TABLET (FP) PO SCH (22:34)
[2022-04-17] MEDS: diazePAM 5 MG TABLET PO SCH ×2 (05:59→17:22)
[2022-04-17] MEDS: METHOCARBAMOL 500 MG TABLET PO PRN ×2 (10:58→17:23)
[2022-04-17] MEDS: TOPIRAMATE 100 MG TABLET PO SCH ×2 (10:58→22:33)
[2022-04-17] MEDS: diazePAM 5 MG TABLET PO PRN (10:58)
[2022-04-17] MEDS: THIAMINE HCL 100 MG TABLET (FP) PO SCH (22:32)
[2022-04-17] MEDS: traZODone HCL 100 MG TABLET (FP) PO SCH (22:33)
[2022-04-18] MEDS ORDERED: diazePAM 5 MG TABLET PO ONE (06:00)
[2022-04-18 07:01] VITALS: BP 117/62; PULSE 68; RESP 16; TEMP 97
[2022-04-18] MEDS ORDERED: POTASSIUM CHLORIDE ORAL LIQUID 20 MEQ/15 ML PO ONE (08:25)
[2022-04-18] MEDS: TOPIRAMATE 100 MG TABLET PO SCH (10:44)
== END 2022-04-18 09:05 | disposition home or self-care (01) | DRG 774 ==
LOC: YASAS 12:54 → Y6N 17:03
PROVIDERS: ADMIT Allergy & Immunology; ATTEND Surgery
PROC: HZ2ZZZZ Detoxification Services for Substance Abuse Treatment (ICD-10-PCS; principal; 2022-04-14)
DX: F10.230 Alcohol dependence with withdrawal, uncomplicated (principal); F14.20 Cocaine dependence, uncomplicated; F12.20 Cannabis dependence, uncomplicated; F19.282 Other psychoactive substance dependence with psychoactive substance-induced sleep disorder; F19.280 Other psychoactive substance dependence with psychoactive substance-induced anxiety disorder; F19.24 Other psychoactive substance dependence with psychoactive substance-induced mood disorder; F31.81 Bipolar II disorder; F41.1 Generalized anxiety disorder; F43.10 Post-traumatic stress disorder, unspecified; E87.6 Hypokalemia; U07.1 COVID-19; M54.50 Low back pain, unspecified; G89.29 Other chronic pain; Z91.410 Personal history of adult physical and sexual abuse; Z88.0 Allergy status to penicillin; Z91.040 Latex allergy status
CPT/HCPCS: 36415; 80053; 85027; 86780; C9803-CS; Q0162; U0003; U0005

== ENCOUNTER 2022-08-22 15:49 | Inpatient (IN) | payer OTHER ==
[2022-08-22] MEDS ORDERED: chlordiazePOXIDE HCL 25 MG CAPSULE PO ONE (16:52)
[2022-08-22] MEDS ORDERED: KETOROLAC TROMETHAMINE 30 MG/1 ML VIAL IM ONE (16:52)
[2022-08-22] MEDS ORDERED: LORazepam 2 MG TABLET PO PRN (17:34)
[2022-08-22] MEDS ORDERED: ACETAMINOPHEN 500 MG TABLET (FP) PO PRN (17:36)
[2022-08-22] MEDS ORDERED: KETOROLAC TROMETHAMINE 30 MG/1 ML VIAL ONE (17:40)
[2022-08-22] MEDS ORDERED: chlordiazePOXIDE HCL 25 MG CAPSULE ONE (17:40)
[2022-08-22 18:06] LABS: BASO % 0.3 % (0-2.0); EOS % 0.4 % (0-4.5); HEMATOCRIT 37.4 % (32.4-45.2); HEMOGLOBIN 11.8 GM/dL (10.7-15.3); LYMPH % 12.5 % (8-40); MCH 23.7 pg (25.7-33.7); MCHC 31.6 g/dl (32.0-36.0); MEAN CELL VOLUME 74.9 fl (80-96); MEAN PLT VOLUME 6.9 fl (7.5-11.1); MONO % 7.6 % (3.8-10.2); NEUT % 79.2 % (42.8-82.8); PLATELET COUNT 364 10^3/uL (134-434); RDW 20.4 % (11.6-15.6); WHITE BLOOD COUNT 11.1 K/mm3 (4.0-10.0)
[2022-08-22 18:16] LABS: POTASSIUM 5.3 mmol/L (3.5-5.1)
[2022-08-22] MEDS ORDERED: LORazepam 1 MG TABLET ONE (18:16)
[2022-08-22] MEDS: LORazepam 1 MG TABLET PO SCH ×2 (18:17→22:19)
[2022-08-22 18:18] LABS: ALBUMIN 3.6 g/dl (3.4-5.0); BLOOD UREA NITROGEN 14.1 mg/dL (7-18); CALCIUM 9.4 mg/dL (8.5-10.1)
[2022-08-22 18:21] LABS: CREATININE 0.7 mg/dL (0.55-1.3)
[2022-08-22 18:23] LABS: TOT PROT 7.8 g/dl (6.4-8.2)
[2022-08-22] MEDS ORDERED: TRIMETHOBENZAMIDE HCL 200MG/2ML INJ IM ONE (21:29)
[2022-08-22] MEDS: TOPIRAMATE 25 MG TABLET PO SCH (22:18)
[2022-08-22] MEDS: traZODone HCL 50 MG TABLET (FP) PO SCH (22:18)
[2022-08-22] MEDS: HEPARIN NA (PORCINE) 5,000 UNITS/ML 1ML VIAL SQ SCH (22:18)
[2022-08-22] MEDS: oxyCODONE HCL 5 MG TABLET PO PRN (22:19)
[2022-08-22] MEDS: risperiDONE 1 MG TABLET PO SCH (23:45)
[2022-08-23 02:04] VITALS: BMI 27.8
[2022-08-23] MEDS: LORazepam 1 MG TABLET PO SCH ×3 (05:01→22:06)
[2022-08-23 08:08] LABS: BASO % 0.4 % (0-2.0); EOS % 1.5 % (0-4.5); HEMATOCRIT 35.1 % (32.4-45.2); HEMOGLOBIN 11.1 GM/dL (10.7-15.3); LYMPH % 18.3 % (8-40); MCH 23.8 pg (25.7-33.7); MCHC 31.6 g/dl (32.0-36.0); MEAN CELL VOLUME 75.3 fl (80-96); MEAN PLT VOLUME 6.6 fl (7.5-11.1); MONO % 8.1 % (3.8-10.2); NEUT % 71.7 % (42.8-82.8); PLATELET COUNT 284 10^3/uL (134-434); RBC 4.67 M/mm3 (3.60-5.2); RDW 20.4 % (11.6-15.6)
[2022-08-23 08:26] LABS: POTASSIUM 3.4 mmol/L (3.5-5.1)
[2022-08-23 08:27] LABS: CALCIUM 8.9 mg/dL (8.5-10.1)
[2022-08-23 08:31] LABS: CREATININE 0.6 mg/dL (0.55-1.3)
[2022-08-23] MEDS: LORazepam 1 MG TABLET PO PRN ×2 (08:44→18:56)
[2022-08-23] MEDS: FAMOTIDINE 20 MG TABLET PO SCH (09:50)
[2022-08-23] MEDS: oxyCODONE HCL 5 MG TABLET PO PRN ×3 (09:50→22:08)
[2022-08-23] MEDS: TOPIRAMATE 25 MG TABLET PO SCH ×2 (09:50→22:06)
[2022-08-23] MEDS: FOLIC ACID 1 MG TABLET (FP) PO SCH (09:50)
[2022-08-23] MEDS: THIAMINE HCL 100 MG TABLET (FP) PO SCH (09:50)
[2022-08-23] MEDS: HEPARIN NA (PORCINE) 5,000 UNITS/ML 1ML VIAL SQ SCH ×2 (09:51→22:07)
[2022-08-23 13:50] VITALS: RESP 18
[2022-08-23] MEDS: VENLAFAXINE HCL 37.5 MG TABLET PO SCH (15:10)
[2022-08-23] MEDS: KETOROLAC TROMETHAMINE 15 MG/ML VIAL IVPUSH PRN (15:10)
[2022-08-23] MEDS: ARTIFICIAL TEARS (POLYVINYL ALCOHOL) OPTH DROPS OU PRN (15:38)
[2022-08-23 16:19] LABS: OPIATES, URI NEGATIVE (NEGATIVE); URINE AMPHETAMINES NEGATIVE (NEGATIVE)
[2022-08-23 16:20] LABS: PHENCYCLIDINE,URINE NEGATIVE (NEGATIVE)
[2022-08-23 16:25] LABS: COCAINE, UR POSITIVE (NEGATIVE); METHADONE, UR POSITIVE (NEGATIVE); URINE BARBITURATES NEGATIVE (NEGATIVE); URINE BENZODIAZEPINES POSITIVE (NEGATIVE)
[2022-08-23] MEDS ORDERED: POTASSIUM CHLORIDE ORAL LIQUID 20 MEQ/15 ML PO ONE (21:27)
[2022-08-23] MEDS: traZODone HCL 50 MG TABLET (FP) PO SCH (22:05)
[2022-08-23] MEDS: risperiDONE 1 MG TABLET PO SCH (22:07)
[2022-08-24] MEDS: LORazepam 1 MG TABLET PO SCH ×3 (05:09→21:40)
[2022-08-24] MEDS: ARTIFICIAL TEARS (POLYVINYL ALCOHOL) OPTH DROPS OU PRN (05:12)
[2022-08-24] MEDS: oxyCODONE HCL 5 MG TABLET PO PRN ×2 (05:18→14:11)
[2022-08-24 08:50] LABS: BASO % 0.4 % (0-2.0); EOS % 1.6 % (0-4.5); HEMATOCRIT 34.7 % (32.4-45.2); HEMOGLOBIN 11.1 GM/dL (10.7-15.3); LYMPH % 13.3 % (8-40); MCH 24.3 pg (25.7-33.7); MEAN CELL VOLUME 75.9 fl (80-96); MEAN PLT VOLUME 7.6 fl (7.5-11.1); MONO % 6.9 % (3.8-10.2); NEUT % 77.8 % (42.8-82.8); PLATELET COUNT 278 10^3/uL (134-434); RBC 4.57 M/mm3 (3.60-5.2); RDW 20.5 % (11.6-15.6); WHITE BLOOD COUNT 10.3 K/mm3 (4.0-10.0)
[2022-08-24 09:10] LABS: POTASSIUM 3.5 mmol/L (3.5-5.1)
[2022-08-24 09:17] LABS: CALCIUM 8.7 mg/dL (8.5-10.1)
[2022-08-24] MEDS: TOPIRAMATE 25 MG TABLET PO SCH ×2 (09:17→21:39)
[2022-08-24] MEDS: FAMOTIDINE 20 MG TABLET PO SCH (09:17)
[2022-08-24] MEDS: THIAMINE HCL 100 MG TABLET (FP) PO SCH (09:18)
[2022-08-24] MEDS: FOLIC ACID 1 MG TABLET (FP) PO SCH (09:18)
[2022-08-24] MEDS: HEPARIN NA (PORCINE) 5,000 UNITS/ML 1ML VIAL SQ SCH ×2 (09:18→21:59)
[2022-08-24] MEDS: LORazepam 1 MG TABLET PO PRN (09:18)
[2022-08-24 09:21] LABS: CREATININE 0.6 mg/dL (0.55-1.3)
[2022-08-24 09:23] LABS: BILIRUBIN,TOTAL 0.8 mg/dL (0.2-1); TOT PROT 6.4 g/dl (6.4-8.2)
[2022-08-24] MEDS ORDERED: SODIUM CHLORIDE 1,000 ML IV SCH (10:15)
[2022-08-24] MEDS: VENLAFAXINE HCL 37.5 MG TABLET PO SCH (14:12)
[2022-08-24] MEDS: KETOROLAC TROMETHAMINE 15 MG/ML VIAL IVPUSH PRN (19:29)
[2022-08-24] MEDS: risperiDONE 1 MG TABLET PO SCH (21:40)
[2022-08-24] MEDS ORDERED: SENNOSIDES 8.6MG TABLET (FP) PO SCH (22:00)
[2022-08-24 22:50] VITALS: BP 131/88; PULSE 78; TEMP 98.4
== END 2022-08-24 22:40 | disposition left against medical advice (07) | DRG 861 ==
LOC: JER 15:49 → JERBED 17:45 → J5S 20:07
PROVIDERS: ADMIT Internal Medicine; ATTEND Internal Medicine
DX: R52 Pain, unspecified (principal); F10.239 Alcohol dependence with withdrawal, unspecified; S82.892A Other fracture of left lower leg, initial encounter for closed fracture; F14.10 Cocaine abuse, uncomplicated; F12.10 Cannabis abuse, uncomplicated; Y08.89XA Assault by other specified means, initial encounter; Y93.89 Activity, other specified; Y92.89 Other specified places as the place of occurrence of the external cause; Y99.8 Other external cause status
CPT/HCPCS: 0241U-QW; 36415; 73610-TC-LT-FY; 73630-TC-LT; 80048; 80053; 80307; 81025; 85025; 93005; 93010; 99285-25; J1644